=== PATIENT | female | born 1945 | race Caucasian/White ===

== ENCOUNTER 2020-03-14 14:19 | Inpatient (IN) | payer OTHER ==
[2020-03-14 15:20] LABS: BASO % 0.7 % (0-2.0)
[2020-03-14 15:24] LABS: EOS % 1.4 % (0-4.5); HEMOGLOBIN 13.3 GM/dl (10.7-15.3); MCH 34.1 pg (25.7-33.7); MCHC 34.2 g/dl (32.0-36.0); MEAN CELL VOLUME 99.8 fl (80-96); MEAN PLT VOLUME 8.7 fl (7.5-11.1); MONO % 4.8 % (3.8-10.2); NEUT % 78.1 % (42.8-82.8); PLATELET COUNT 231 K/MM3 (134-434); RBC 3.91 M/mm3 (3.60-5.2); RDW 11.9 % (11.6-15.6); WHITE BLOOD COUNT 8.4 K/mm3 (4.0-10.8)
[2020-03-14 15:30] LABS: ACTIVATED PTT 20.8 SECONDS (25.2-36.5)
[2020-03-14 15:32] LABS: ALBUMIN 4.1 g/dl (3.4-5.0); BILIRUBIN,TOTAL 0.9 mg/dl (0.2-1); CALCIUM 9.5 mg/dl (8.5-10); CREATININE 0.8 mg/dl (0.55-1.3); MAGNESIUM 1.9 mg/dL (1.8-2.4); PHOSPHOROUS 3.6 mg/dl (2.5-4.9); POTASSIUM 4.1 mmol/L (3.5-5.1)
[2020-03-14 15:35] LABS: INR 1.02 (0.82-1.09); PROTHROMBIN TIME (PATIENT) 11.4 SEC (10.2-13.0)
--- NOTE | 2020-03-14 15:42 | PDOC ---
Documentation entered by Clare Sutton SCRIBE, acting as scribe for Ping Miranda MD. Ping Miranda MD: This documentation has been prepared by the scribeHerman Ana, SCRIBE, under my direction and personally reviewed by me in its entirety. I confirm that the documentation accurately reflects all work, treatment, procedures, and medical decision making performed by me. History of Present Illness - General Chief Complaint: Shortness of Breath Stated Complaint: SHORT OF BREATH History Source: Patient Exam Limitations: No Limitations - History of Present Illness Initial Comments: 03/14/20 14:35 Patient is a 75 year old female with a significant past medical history of Raynauds Syndrome, smoking (30 years - quit 32 years ago), panic attacks, UTIs, and a previous thrombosed vein in chest (about 40 years ago), who presents to the ED with SOB and associated chest tightness x1 week. Patient stated that last Wednesday afternoon (03/08/2020) she [place] when she suddenly began to experience severe SOB. Patient reports that ever since then she has been in and out of bed because she cannot exert herself at all without needing to lay down after. Patient also reports mild lightheadedness. Patient denies: syncope, headache, palpitations, pain, swelling, or any other related symptoms. Allergies: NKDA Past History - Medical History Allergies/Adverse Reactions: Allergies Allergy/AdvReac Type Severity Reaction Status Date / Time No Known Allergies Allergy Verified 03/14/20 14:21 Home Medications: Ambulatory Orders Apixaban [Eliquis -] 10 mg PO BID #54 tablet 03/19/20 Colchicine [Colcrys] 0.6 mg PO DAILY #5 tab 03/19/20 COPD: No - Reproductive History Is Patient Now?: No - Psycho-Social/Smoking History Smoking History: Former smoker Have you smoked in the past 12 months: No If you are a former smoker, when did you quit?: 1987 Information on smoking cessation initiated: No - Substance Abuse Hx (Audit-C & DAST Scrn) How often the patient has a drink containing alcohol: 4 0r more times/wk Number of drinks the patient has on a typical day: 1 or 2 How often the patient has six or more drinks on one occasion: Never Score: In Men: 4 or > Positive; In Women: 3 or > Positive: 4 Screen Result (Pos requires Nsg. Audit-10AR): Positive In the last yr the pt used illegal drug/Rx for NonMed reason: No Score: Yes response is considered Positive: 0 Screen Result (Positive result requires Nsg. DAST-10): Negative Review of Systems - Review of Systems Able to Perform ROS?: Yes Comments:: 03/14/20 14:34 GEN: no fever, chills, night sweats, malaise, or unintentional weight change HEENT: no ear pain, congestion, sore throat, vision change, or eye pain CV: + Lightheadedness. No chest pain, palpitations, syncope, or edema RESP: + SOB. No cough, wheezing. GI: no abdominal pain, nausea, vomiting, diarrhea, constipation, or white/black/bloody stool : no dysuria, hematuria, frequency, incontinence, retention, or discharge MSK: no muscle weakness or pain, no joint swelling or pain NEURO: no headache, seizure, vertigo, imbalance, numbness, tingling, focal weakness, or difficulty walking/talking PSYCH: no insomnia, behavior change, SI, HI, or substance use SKIN: no prurtitis, excessive dryness, jaundice, rash, cuts, or unexplained bruises ROS otherwise negative except as noted in HPI *Physical Exam - Vital Signs Last Vital Signs Temp Pulse Resp BP Pulse Ox 98.2 F 108 H 22 H 176/95 H 92 L 03/14/20 14:20 03/14/20 14:20 03/14/20 14:20 03/14/20 14:20 03/14/20 14:20 - Physical Exam 03/14/20 14:34 GENERAL: elderly, nontoxic-appearing, no distress, answers questions appropriately, accompanied by family at bedside who assist in history HEENT: PERRLA, EOMI, moist mucous membranes NECK/BACK: no midline ttp, no spinal stepoff or deformity, no hematoma, full ROM, neck supple CARDIOVASCULAR: regular rate/rhythm, no MGR, strong peripheral pulses, capillary refill <2 seconds, extremities wwp, no edema LUNGS/RESPIRATORY: no respiratory distress, CTAB GI/ABDOMEN: symmetric [id number], normoactive BS, soft, no ttp, no midline pu lsatile masses : no CVA tenderness MSK/EXTREMITIES: no acute-appearing muscle atrophy, no acute deformity, no calf swelling or pain, calf circumference equal bilaterally, no UE swelling, all distal pulses intact and equal DERM/SKIN: warm and dry, no pallor, no jaundice, no rash, no pathologic-appe aring bruising, no skin breakdown, no cuts, no lesions NEUROLOGICAL: GCS 15, CN II-XII grossly intact, 5/5 strength proximally and distally, no facial droop Heart Score/ECG Review #1 03/14/20 15:33 Sinus tachycardia, rate 103, normal axis and intervals, poor R wave progression, non-pathologic SERGEY in V123 ED Treatment Course - LABORATORY CBC & Chemistry Diagram: 03/19/20 06:50 03/19/20 06:50 Medical Decision Making - Critical Care Time Total Critical Care Time (minutes): 45 Critical Care Statement: The care of this patient involved high complexity decision making to prevent further life threatening deterioration of the patient's condition and/or to evaluate & treat vital organ system(s) failure or risk of failure. 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 Initial Vital Signs Temp Pulse Resp BP Pulse Ox 98.2 F 108 H 22 H 176/95 H 92 L 03/14/20 14:20 03/14/20 14:20 03/14/20 14:20 03/14/20 14:20 03/14/20 14:20 I am concerned for PE in this patient especially given her prior h/o thrombosis, her tachycardia, her new hypoxia, and her symptoms. Other possibilities are anemia, ACS, CHF, PTX, PNA or bronchitis, electrolyte/metabolic derangement, UTI, or other cause. Patient will require chest CT PE protocol given her high risk and high probability of PE. CXR: nothing acute Provider Orders Category Date Time Status TYPE AND SCREEN Stat Blood Bank 03/14/20 14:[address] WITH CONTRAST [CT] Stat CT Scan 03/14/20 14:38 Ordered ELECTROCARDIOGRAM [CARD] Stat Cardiology 03/14/20 14:36 Ordered Cardiac Monitoring Continuous Care 03/14/20 14:36 Ordered EKG needed NOW Care 03/14/20 14:37 Ordered ACTIVATED PTT SERIES Lab 03/16/20 06:00 Ordered ACTIVATED PTT SERIES Lab 03/17/20 06:00 Ordered ACTIVATED PTT SERIES Lab 03/18/20 06:00 Ordered ACTIVATED PTT SERIES Lab 03/19/20 06:00 Ordered ACTIVATED PTT SERIES Lab 03/20/20 06:00 Ordered ACTIVATED PTT Stat Lab 03/14/20 14:37 Uncollected CARDIAC PROFILE (ONLY [facility]) Stat Lab 03/14/20 14:36 Uncollected CBC WITH DIFFERENTIAL Stat Lab 03/14/20 14:36 Uncollected COMP METABOLIC PANEL Stat Lab 03/14/20 14:36 Uncollected COMPLETE BLOOD COUNT SERIES Lab 03/16/20 06:00 Ordered COMPLETE BLOOD COUNT SERIES Lab 03/17/20 06:00 Ordered COMPLETE BLOOD COUNT SERIES Lab 03/18/20 06:00 Ordered COMPLETE BLOOD COUNT SERIES Lab 03/19/20 06:00 Ordered COMPLETE BLOOD COUNT SERIES Lab 03/20/20 06:00 Ordered MAGNESIUM Stat Lab 03/14/20 14:36 Uncollected PHOSPHOROUS Stat Lab 03/14/20 14:36 Uncollected PT/INR (PROTHROMBIN TIME) Stat Lab 03/14/20 14:37 Uncollected STOOL FOR OCCULT BLOOD SERIES Lab 03/16/20 06:00 Uncollected STOOL FOR OCCULT BLOOD SERIES Lab 03/17/20 06:00 Uncollected STOOL FOR OCCULT BLOOD SERIES Lab 03/18/20 06:00 Uncollected STOOL FOR OCCULT BLOOD SERIES Lab 03/19/20 06:00 Uncollected STOOL FOR OCCULT BLOOD SERIES Lab 03/20/20 06:00 Uncollected TSH [THYROID STIMULATING HORMONE] Stat Lab 03/14/20 14:38 Uncollected UA ([facility] ONLY) Stat Lab 03/14/20 15:33 Uncollected Heparin - Medication 03/14/20 16:18 Ordered 1,000 unit IVPUSH PRN PRN Heparin - Medication 03/14/20 16:18 Ordered 5,000 unit IVPUSH PRN PRN Heparin Infusion In NS @ 800 units/HR (Pt < 67kg) Medication 03/14/20 16:30 Ordered Heparin - 25,000 unit Sodium Chloride [Normal Saline -] 495 ml IV TITR Urine Culture [URINE CULTURE] Stat Micro 03/14/20 15:33 Uncollected CHEST X-RAY PORTABLE* [RAD] Stat Radiology 03/14/20 14:36 Ordered Medications Generic Name Dose Route Start Last Admin Trade Name Lindy PRN Reason Stop Dose Admin Heparin Sodium (Porcine) 1,000 unit 03/14/20 16:18 Heparin - IVPUSH PRN PRN Heparin Heparin Sodium (Porcine) 5,000 unit 03/14/20 16:18 Heparin - IVPUSH PRN PRN Heparin Heparin Sodium (Porcine) 25, 500 mls @ 16 mls/hr 03/14/20 16:30 000 unit/ Sodium Chloride IV TITR LIBBY Protocol 800 UNIT/HR Lab Results WBC 8.4 K/mm3 (4.0-10.8) 03/14/20 14:40 RBC 3.91 M/mm3 (3.60-5.2) 03/14/20 14:40 Hgb 13.3 GM/dl (10.7-15.3) 03/14/20 14:40 Hct 39.0 % (32.4-45.2) 03/14/20 14:40 MCV 99.8 fl (80-96) H 03/14/20 14:40 MCH 34.1 pg (25.7-33.7) H 03/14/20 14:40 MCHC 34.2 g/dl (32.0-36.0) 03/14/20 14:40 RDW 11.9 % (11.6-15.6) 03/14/20 14:40 Plt Count 231 K/MM3 (134-434) 03/14/20 14:40 MPV 8.7 fl (7.5-11.1) 03/14/20 14:40 Absolute Neuts (auto) 6.5 K/mm3 03/14/20 14:40 Neutrophils % 78.1 % (42.8-82.8) 03/14/20 14:40 Lymphocytes % 15.0 % (8-40) 03/14/20 14:40 Monocytes % 4.8 % (3.8-10.2) 03/14/20 14:40 Eosinophils % 1.4 % (0-4.5) 03/14/20 14:40 Basophils % 0.7 % (0-2.0) 03/14/20 14:40 PT with INR 11.4 SEC (10.2-13.0) 03/14/20 14:40 INR 1.02 (0.82-1.09) 03/14/20 14:40 PTT (Actin FS) 20.8 SECONDS (25.2-36.5) L 03/14/20 14:40 Sodium 139 mmol/L (136-145) 03/14/20 15:00 Potassium 4.1 mmol/L (3.5-5.1) 03/14/20 15:00 Chloride 106 mmol/L (98-107) 03/14/20 15:00 Carbon Dioxide 22 mmol/L (21-32) 03/14/20 15:00 Anion Gap 11 MMOL/L (8-16) 03/14/20 15:00 BUN 27.0 mg/dl (7-18) H 03/14/20 15:00 Creatinine 0.8 mg/dl (0.55-1.3) 03/14/20 15:00 Est GFR (CKD-EPI)AfAm 82.42 03/14/20 15:00 Est GFR (CKD-EPI)NonAf 71.11 03/14/20 15:00 Random Glucose 89 mg/dl (74-106) 03/14/20 15:00 Calcium 9.5 mg/dl (8.5-10) 03/14/20 15:00 Phosphorus 3.6 mg/dl (2.5-4.9) 03/14/20 15:00 Magnesium 1.9 mg/dL (1.8-2.4) 03/14/20 15:00 Total Bilirubin 0.9 mg/dl (0.2-1) 03/14/20 15:00 AST 249 U/L (15-37) H 03/14/20 15:00 ALT 242 U/L (13-61) H 03/14/20 15:00 Alkaline Phosphatase 119 U/L (45-117) H 03/14/20 15:00 Creatine Kinase 85 U/L (26-192) 03/14/20 15:00 Troponin I 0.06 ng/ml (0.00-0.05) H 03/14/20 15:00 Total Protein 7.0 g/dl (6.4-8.2) 03/14/20 15:00 Albumin 4.1 g/dl (3.4-5.0) 03/14/20 15:00 03/14/20 16:16 Bilateral pulmonary emboli seen on chest CT - patient to be admitted, PCP Dr. Mcneil's patients go to [facility]. Heparin 5000U bolus and then ggt ordered. CT/CHEST CT WITH CONTRAST Patient Name: JAXSON PATEL Accession Number: [id number] :[id number] Gender: Female Procedure: CHEST CT WITH CONTRAST CLINICAL INFORMATION: 75 years Female shortness of breath. Rule out pulmonary embolism. TECHNIQUE: Axial images of the chest were acquired from the clavicles through the diaphragms with the administration of 95 cc Omnipaque intravenous contrast. Coronal and sagittal reformatted images were performed. COMPARISON: None. FINDINGS: Devices: None. Lungs and Airways: No focal consolidation. The central airways are patent. No suspicious pulmonary nodules are identified. Pleura and Pleural Space: There is no pleural effusion, pleural mass, or pneumothorax. Neck base: No focal lesion. The thyroid gland appears normal. Lymph nodes and Mediastinum: There is no significant intrathoracic lymphadenopathy. No pathologically enlarged axillary or other adenopathy is detected. Cardiovascular: Large bilateral pulmonary emboli are demonstrated within the primary left and right pulmonary arteries. Associated moderate right heart strain is demonstrated. Cardiomegaly. Trace pericardial effusion. The aorta is normal in caliber. Upper abdomen: The imaged portions of the solid and visceral abdominal organs are unremarkable. Musculoskeletal and Chest Wall: Multilevel degenerative disc disease. There is no fracture or other acute osseous pathology. IMPRESSION: Large bilateral pulmonary emboli demonstrated within the primary left and right pulmonary arteries with associated moderate right heart strain. Findings discussed with Dr. Orr on March 14, 2020 at 4:50 PM by phone. Discharge - Discharge Information Problems reviewed: Yes Clinical Impression/Diagnosis: Bilateral pulmonary embolism, Elevated LFTs, Elevated troponin Condition: Guarded - Admission Yes - Follow up/Referral - Patient Discharge Instructions - Post Discharge Activity
[2020-03-14] MEDS ORDERED: HEPARIN NA (PORCINE) 5,000 UNITS/ML 1ML VIAL IVPUSH PRN ×2 (16:18)
[2020-03-14] MEDS ORDERED: HEPARIN INFUSION - 25,000 UNITS/500 ML INFUS.BAG IVPB ONE (16:35)
[2020-03-14] MEDS ORDERED: HEPARIN NA (PORCINE) 5,000 UNITS/ML 1ML VIAL ONE (16:35)
[2020-03-14] MEDS: HEPARIN - 25,000 UNIT in SODIUM CHLORIDE 495 ML IV SCH (16:55)
[2020-03-14 18:37] VITALS: BMI 26.2
--- NOTE | 2020-03-14 20:51 | HP ---
Admitting History and Physical - Primary Care Physician PCP: Brunilda Mcneil - Admission Chief Complaint: SOB History of Present Illness: This is a 75 y/o female with a significant past medical history of Raynaud's Syndrome, Former Smoker (30 years - quit 32 years ago), Panic Attacks, UTIs, a previous thrombosed vein in chest (about 40 years ago). Who presents to the ED with SOB and associated chest tightness x1 week. Patient stated that last Wednesday afternoon (03/08/2020) [place] when she suddenly began to experience severe SOB. Patient reports that ever since then she has been in and out of bed because she cannot exert herself at all without needing to lay down after. Patient also reports mild lightheadedness. Patient denies: syncope, headache, palpitations, pain, swelling, or any other related symptoms. History Source: Patient Limitations to Obtaining History: No Limitations - Past Medical History Renal/: Yes: UTI ...: No Psych: Yes: Panic Rheumatology: Yes: Other (Raynaud's Syndrome) - Past Surgical History Additional Past Surgical History: Hammertoe correction - Advance Directives Advance Directives: Yes: Living Will, Health Care Proxy, Organ Donor - Smoking History Smoking history: Former smoker Have you smoked in the past 12 months: No If you are a former smoker, when did you quit?: 1987 - Alcohol/Substance Use Hx Alcohol Use: Yes (1-2 drinks daily) History of Substance Use: reports: None - Social History Usual Living Arrangement: Yes: With Spouse Do you think of yourself as: Straight/Heterosexual ADL: Independent Occupation: Retired- Project Superintendent History of Recent Travel: No Home Medications - Allergies Allergies/Adverse Reactions: Allergies Allergy/AdvReac Type Severity Reaction Status Date / Time No Known Allergies Allergy Verified 03/14/20 14:21 - Home Medications Home Medications: Ambulatory Orders NK [No Known Home Medication] 03/14/20 Family Medical History Family History: As Documented Family Hx Congestive Heart Failure: Father, Brother (-71) Family Hx Coronary Artery Disease: Mother ([place]) Family Hx Respiratory Disorders: Brother (COPD- 71) Review of Systems - Review of Systems Constitutional: reports: No Symptoms Eyes: reports: No Symptoms HENT: reports: No Symptoms Neck: reports: No Symptoms Cardiovascular: reports: Chest Pain, Shortness of Breath Respiratory: reports: Exercise Intolerance, Orthopnea, SOB, SOB on Exertion Gastrointestinal: reports: No Symptoms Genitourinary: reports: No Symptoms Breasts: reports: No Symptoms Reported Musculoskeletal: reports: No Symptoms Integumentary: reports: No Symptoms Neurological: reports: Dizziness Endocrine: reports: No Symptoms Hematology/Lymphatic: reports: No Symptoms Psychiatric: reports: No Symptoms Physical Examination Vital Signs: Vital Signs Temperature 98.1 F 03/14/20 18:18 Pulse Rate 109 H 03/14/20 18:18 Respiratory Rate 18 03/14/20 20:38 Blood Pressure 177/94 H 03/14/20 18:18 O2 Sat by Pulse Oximetry (%) 93 L 03/14/20 20:38 Constitutional: Yes: Well Nourished, Anxious Eyes: Yes: WNL, Conjunctiva Clear, EOM Intact, PERRL HENT: Yes: WNL, Atraumatic, Normocephalic Neck: Yes: WNL, Supple, Trachea Midline Cardiovascular: Yes: Regular Rate and Rhythm, S1, S2 Respiratory: Yes: Diminished, On Nasal O2, SOB on Exertion. No: Rhonchi, Wheezes Gastrointestinal: Yes: WNL, Normal Bowel Sounds, Soft ...Rectal Exam: Yes: Deferred Renal/: Yes: WNL Breast(s): Yes: WNL Musculoskeletal: Yes: WNL, Other (neg homans) Extremities: Yes: WNL Edema: No Peripheral Pulses WNL: Yes Neurological: Yes: WNL, Alert, Oriented, Cran Nerves II-XII Intact ...Motor Strength: WNL Psychiatric: Yes: WNL, Alert, Oriented Labs: CBC, BMP 03/14/20 14:40 03/14/20 15:00 Laboratory Results - last 24 hr 03/14/20 03/14/20 03/14/20 14:40 14:40 14:40 WBC 8.4 RBC 3.91 Hgb 13.3 Hct 39.0 MCV 99.8 H MCH 34.1 H MCHC 34.2 RDW 11.9 Plt Count 231 MPV 8.7 Absolute Neuts (auto) 6.5 Neutrophils % 78.1 Lymphocytes % 15.0 Monocytes % 4.8 Eosinophils % 1.4 Basophils % 0.7 PT with INR 11.4 INR 1.02 PTT (Actin FS) 20.8 L Sodium Potassium Chloride Carbon Dioxide Anion Gap BUN Creatinine Est GFR (CKD-EPI)AfAm Est GFR (CKD-EPI)NonAf Random Glucose Calcium Phosphorus Magnesium Total Bilirubin AST ALT Alkaline Phosphatase Creatine Kinase Troponin I Total Protein Albumin TSH Urine Color Urine Appearance Urine pH Urine Protein Urine Glucose (UA) Urine Ketones Urine Blood Urine Nitrite Urine Bilirubin Urine Urobilinogen Ur Leukocyte Esterase Urine RBC Urine WBC Urine Bacteria Blood Type B POSITIVE Antibody Screen Negative 03/14/20 03/14/20 03/14/20 15:00 15:00 15:45 WBC RBC Hgb Hct MCV MCH MCHC RDW Plt Count MPV Absolute Neuts (auto) Neutrophils % Lymphocytes % Monocytes % Eosinophils % Basophils % PT with INR INR PTT (Actin FS) Sodium 139 Potassium 4.1 Chloride 106 Carbon Dioxide 22 Anion Gap 11 BUN 27.0 H Creatinine 0.8 Est GFR (CKD-EPI)AfAm 82.42 Est GFR (CKD-EPI)NonAf 71.11 Random Glucose 89 Calcium 9.5 Phosphorus 3.6 Magnesium 1.9 Total Bilirubin 0.9 AST 249 H ALT 242 H Alkaline Phosphatase 119 H Creatine Kinase 85 Troponin I 0.06 H Total Protein 7.0 Albumin 4.1 TSH 1.37 Urine Color Yellow Urine Appearance Clear Urine pH 6.0 Urine Protein Negative Urine Glucose (UA) Negative Urine Ketones Negative Urine Blood Trace-intact Urine Nitrite Negative Urine Bilirubin Negative Urine Urobilinogen 0.2 Ur Leukocyte Esterase Trace H Urine RBC 0-2 Urine WBC 2-3 Urine Bacteria Few Blood Type Antibody Screen Intake & Output 03/11/20 03/12/20 03/13/20 03/14/20 23:59 23:59 23:59 23:59 Weight 67.152 kg Imaging - Results Chest X-ray: Report Reviewed, Image Reviewed Cat Scan: Report Reviewed, Image Reviewed EKG: Image Reviewed Problem List - Problems (1) Bilateral pulmonary embolism Assessment/Plan: Wells Score 4.5, moderate risk CTA- large bilateral pulmonary emboli within the left primary and right pulmonary arteries with associated moderate right heart strain Heparin Protocol initiated in ED PTT series Continue cardiac monitoring Appreciate Pulmonology consult Duplex of lower extremity - r/o DVT Monitor CBC, CMP O2 Code(s): I26.99 - OTHER PULMONARY EMBOLISM WITHOUT ACUTE COR PULMONALE (2) SOB (shortness of breath) Assessment/Plan: see above Code(s): R06.02 - SHORTNESS OF BREATH (3) Elevated troponin Assessment/Plan: Likely secondary to PE vs ACS Continue cardiac monitoring Will trend Serial Enzymes Appreciate Cardiology consult EKG reviewed O2 Monitor CBC, CMP Code(s): R79.89 - OTHER SPECIFIED ABNORMAL FINDINGS OF BLOOD CHEMISTRY (4) Elevated LFTs Assessment/Plan: r/o viral hepatitis, alcoholic liver disease vs malignancy Gallbladder US-pending Hepatitis Panel-pending Consider GI consult Monitor CBC, CMP Avoid Hepatotoxic drugs Monitor vitals Code(s): R79.89 - OTHER SPECIFIED ABNORMAL FINDINGS OF BLOOD CHEMISTRY (5) Raynaud's syndrome Assessment/Plan: stable Will continue to monitor and treat with interventions. accordingly f/u with Rheumatology outpatient as indicated Code(s): I73.00 - RAYNAUD'S SYNDROME WITHOUT GANGRENE (6) Encounter for screening laboratory testing for COVID-19 virus Assessment/Plan: Low Risk COVID PCR-pending Isolation Precautions Code(s): Z11.59 - ENCOUNTER FOR SCREENING FOR OTHER VIRAL DISEASES Assessment/Plan This is a 75 y/o female with a significant past medical history of Raynaud's Syndrome, Former Smoker (30 years - quit 32 years ago), Panic Attacks, UTIs, a previous thrombosed vein in chest (about 40 years ago). Admitted to Telemetry for Bilateral Pulmonary Embolisms, Acute Respiratory Failure with Hypoxia, Troponinemia for further evaluation of their emergent condition. Plan: See Problem List FEN PO fluids as tolerated Replete lytes prn Regular Diet DVT ppx OOB SCDs (when duplex LE completed- r/o DVT) Continue Heparin Drip Dispo: Requires Inpatient Care Visit type - Medication Review Med list reviewed for High Risk Meds patients 65 and older: No (No med list av ailable) - Emergency Visit Emergency Visit: Yes ED Registration Date: 03/14/20 Care time: The patient presented to the Emergency Department on the above date and was hospitalized for further evaluation of their emergent condition. - New Patient This patient is new to me today: Yes Date on this admission: 03/14/20 - Critical Care Critical Care patient: No
--- NOTE | 2020-03-15 07:58 | PN ---
Progress Note (short form) - Note Progress Note: PULMONARY CONSULTATION DICTATED 03/15/20 IMP ACUTE SUB-MASSIVE PULMONARY EMBOLISM UNPROVOKED RAYNAUDS H/O PANIC ATTACKS PLAN SUPPLEMENTAL O2 AC ECHO BNP TREND TROPONIN COVID PCR PENDING AGE APPROPRIATE CANCER SCREENING W/U FOR HYPERCOAGULABLE STATE OUTPATIENT DR HAYWARD Problem List - Problems (1) Bilateral pulmonary embolism Code(s): I26.99 - OTHER PULMONARY EMBOLISM WITHOUT ACUTE COR PULMONALE (2) Elevated LFTs Code(s): R79.89 - OTHER SPECIFIED ABNORMAL FINDINGS OF BLOOD CHEMISTRY (3) Elevated troponin Code(s): R79.89 - OTHER SPECIFIED ABNORMAL FINDINGS OF BLOOD CHEMISTRY (4) Raynaud's syndrome Code(s): I73.00 - RAYNAUD'S SYNDROME WITHOUT GANGRENE (5) SOB (shortness of breath) Code(s): R06.02 - SHORTNESS OF BREATH
--- NOTE | 2020-03-15 08:31 | CON.CARD ---
Consult Consult Specialty:: Cardiology Referred by:: Dr. Anderson Reason for Consultation:: Pulmonary emboli - History of Present Illness Chief Complaint: SOB History of Present Illness: 75 y/o female with a significant past medical history of Raynaud's Syndrome, Former Smoker (30 years - quit 32 years ago), Panic Attacks, UTIs, a previous thrombosed vein in chest (about 40 years ago). Who presents to the ED with SOB and associated chest tightness x1 week.CTA showed bilateral pulmonary emboli with evidence of possible right heart strain. Her TNI is elevated. She appears comfortable. Denies CP. Hemodynamically, she has been stable with no hypotension. 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: No: Alzheimer's, CVA, Dementia, Migraine, Multiple Sclerosis, Peripheral Neuropathy, Parkinson's, Seizure, Syncope, TIA, Vertigo, Other Cardio/Vascular: No: AFIB, Aneurysm, Aortic Insufficiency, Aortic Stenosis, CAD, CHF, Deep Vein Thrombosis, HTN, Hyperlipdemia, CO, Mitral Insufficiency, Mitral Stenosis, Murmur, Pulmonary Hypertension, Other Pulmonary: No: Asthma, Bronchitis, Cancer, COPD, O2 Dependent, Pneumonia, Previously Intubated, Pulmonary Embolus, Pulmonary Fibrosis, Sleep Apnea, Other Gastrointestinal: No: Ascites, Cancer, Constipation, Crohn's Disease, Divertic ulitis, Diverticulosis, Esophageal Varices, Gastritis, GERD, GI Bleed, Hemorrhoids, Hiatal Hernia, Inflamatory Bowel Disease, Irritable Bowel Disease, Pancreatitis, Peptic Ulcer Disease, Ulcerative Colitis, Other Hepatobiliary: No: Cirrhosis, Cholelithiasis, Cholecystitis, C holedocholithiasis, Hepatitis A, Hepatitis B, Hepatitis C, Other Renal/: Yes: UTI. No: Renal Failure, Renal Inusuff, BPH, Cancer, Hematuria, Hemodialysis, Neurogenic Bladder, Renal Calculi, Other ...: No Infectious Disease: No: AIDS, C-Diff, Herpes Zoster, HIV, MRSA, STD's, Tuberculosis, VREF, Other Psych: Yes: Panic Rheumatology: Yes: Other (Raynaud's Syndrome) Endocrine: No: [place]'s Disease, Hany's Disease, Diabetes Insipidus, D iabetes Mellitus, Hyperparathyroidism, Hyperthyroidism, Hypothyroidism, Osteopenia, SIADH, Other Dermatology: No: Basal Cell, Cellulitis, Eczema, Melanoma, Psoriasis, Squamous Cell, Other - Alcohol/Substance Use Hx Alcohol Use: No History of Substance Use: reports: None - Smoking History Smoking history: Former smoker Have you smoked in the past 12 months: No If you are a former smoker, when did you quit?: 1987 - Social History Usual Living Arrangement: With Spouse ADL: Independent History of Recent Travel: No Home Medications - Allergies Allergies/Adverse Reactions: Allergies Allergy/AdvReac Type Severity Reaction Status Date / Time No Known Allergies Allergy Verified 03/14/20 14:21 - Home Medications Home Medications: Ambulatory Orders NK [No Known Home Medication] 03/14/20 Family Medical History Family History: Unremarkable Review of Systems - Review of Systems Constitutional: reports: No Symptoms Eyes: reports: No Symptoms HENT: reports: No Symptoms Neck: reports: No Symptoms Respiratory: reports: SOB, SOB on Exertion Gastrointestinal: denies: No Symptoms, Abdominal Pain, Bloating, Constipation, Diarrhea, Dysphagia, Indigestion, Melena, Nausea, Rectal Bleeding, Vomiting, Vomiting Blood, Other Genitourinary: denies: No Symptoms, Burning, Discharge, Dysuria, Flank Pain, Frequency, Hematuria, Incontinence, Lesions, Menses, Pain, Testicular Mass, Testicular Pain, Testicular Swelling, Urgency, Vaginal Bleeding, Other Breasts: denies: No Symptoms Reported, See HPI, Breast Implants, Discharge from Nipple, Lumps, Pain, Skin Changes, Other Musculoskeletal: denies: No Symptoms, Back Pain, Crepitus, Decreased ROM, Extremity Pain, Joint Pain, Joint Swelling, Muscle Pain, Muscle Cramps, Muscle Weakness, Other Integumentary: denies: No Symptoms, Blister, Bruising, Change in Color, Eczema, Erythema, Incision, Lesions, Lump, Pallor, Pruritis, Rash, Wound, Other Neurological: denies: No Symptoms, Change in LOC, Change in Speech, Confusion, Dizziness, Headache, Incoordination, Numbness, Parasthesia, Pre-Existing Deficit, Seizure, Syncope, Tremors, Unsteady Gait, Weakness, Other Endocrine: denies: No Symptoms, Excessive Sweating, Flushing, Increased Hunger, Increased Thirst, Intolerance to Cold, Intolerance to Heat, Unexplained Weight Gain, Unexplained Weight Loss, Other Hematology/Lymphatic: denies: No Symptoms, Easily Bruised, Excessive Bleeding, Swollen Glands, Other Psychiatric: reports: Panic Vital Signs: Vital Signs Temperature 97.8 F 03/15/20 08:30 Pulse Rate 72 03/15/20 08:30 Respiratory Rate 18 03/15/20 08:30 Blood Pressure 142/87 03/15/20 08:30 O2 Sat by Pulse Oximetry (%) 100 03/15/20 08:30 Constitutional: Yes: No Distress Eyes: Yes: Conjunctiva Clear HENT: Yes: Atraumatic Neck: Yes: Trachea Midline Respiratory: Yes: Regular, CTA Bilaterally Gastrointestinal: Yes: Soft (nt) Cardiovascular: Yes: Regular Rate and Rhythm JVD: No Carotid Bruit: No PMI: Non-Displaced Heart Sounds: Yes: S1, S2 (rrr) Edema: No (Negative Monica's b/l) Peripheral Pulses WNL: Yes Integumentary: Yes: WNL Neurological: Yes: Alert, Oriented ...Motor Strength: WNL - Other Data Labs, Other Data: CBC, BMP 03/14/20 14:40 03/14/20 15:00 INR, PTT INR 1.02 (0.82-1.09) 03/14/20 14:40 Troponin, BNP 03/14/20 03/14/20 15:00 21:00 Troponin I 0.06 H 0.63 H* Troponin, BNP 03/14/20 03/14/20 15:00 21:00 Troponin I 0.06 H 0.63 H* ST 103, LAE, poor R wave progression, NSST changes Echo: Pending Imaging - Results Cat Scan: Report Reviewed (large b/l pulmonary emboli), Image Reviewed Assessment/Plan IMP: Large bilateral pulmomary emboli with evidence of right heart strain on CT and elevated TnI Hemodynamically stable REC: 1. Pulmonary emboli: -Continue anticoagulation. Has been started on UFH gtts while she is evaluated for possible catheter directed thrombolysis -Have discussed with Pulmonary and Critical Care Team, pt to be transferred to [facility] telemetry unit or ICU if bed available. -Echo to evaluate right heart -Recommend consulting Interventonal Radiology -age appropriate cancer screening -Heme evaluation -Check BNP -f/u LE venous duplex -further plans for AC as per critical care team. -Supp O2
--- NOTE | 2020-03-15 09:28 | PN ---
Progress Note, Physician Chief Complaint: VILLANUEVA History of Present Illness: 75 year old F admitted overnight for c/o VILLANUEVA, she was found to have large bilateral PE within the primary left and right pulmonary arteries with a ssociated moderate right heart strain. Arrangements made for transfer [place] [facility] [place] for [place] management and possible catheter directed thrombolysis. Heparin drip currently therapeutic last PTT 100.0 and trop downtrending. - Current Medication List Current Medications: Active Medications Heparin Sodium (Porcine) (Heparin -) 1,000 unit IVPUSH PRN PRN PRN Reason: Heparin Heparin Sodium (Porcine) (Heparin -) 5,000 unit IVPUSH PRN PRN PRN Reason: Heparin Last Admin: 03/14/20 16:50 Dose: 5,000 unit Documented by: Heparin Sodium (Porcine) 25, (000 unit/ Sodium Chloride) 500 mls @ 16 mls/hr IV TITR LIBBY; Protocol Last Admin: 03/14/20 16:55 Dose: 800 unit/hr, 16 mls/hr Documented by: - Objective Vital Signs: Vital Signs Temperature 97.8 F 03/15/20 08:30 Pulse Rate 72 03/15/20 08:30 Respiratory Rate 18 03/15/20 08:30 Blood Pressure 142/87 03/15/20 08:30 O2 Sat by Pulse Oximetry (%) 100 03/15/20 08:31 Constitutional: Yes: Well Nourished, No Distress, Calm Eyes: Yes: Conjunctiva Clear HENT: Yes: Atraumatic, Normocephalic Neck: Yes: Supple, Trachea Midline Cardiovascular: Yes: Regular Rate and Rhythm Respiratory: Yes: CTA Bilaterally Gastrointestinal: Yes: Soft, Abdomen, Obese, Hypoactive Bowel Sounds ...Rectal Exam: Yes: Deferred Musculoskeletal: Yes: WNL Extremities: Yes: WNL Neurological: Yes: Alert, Oriented ...Motor Strength: WNL Psychiatric: Yes: Alert, Oriented Labs: CBC, BMP 03/14/20 14:40 03/14/20 15:00 INR, PTT INR 1.02 (0.82-1.09) 03/14/20 14:40 - ....Imaging Chest X-ray: Report Reviewed (CXR 03/14/2020 Impression: No acute chest pathology. No comparison studies. Reported By: Sathish Jin MD 03/14/20 1704) Cat Scan: Report Reviewed (CT chest with contrast 03/14/2020 IMPRESSION: Large bilateral pulmonary emboli demonstrated within the primary left and right pulmonary arteries with associated moderate right heart strain. Findings discussed with Dr. Orr on March 14, 2020 at 4:50 PM by phone. Reported By: Navid Stokes MD 03/14/20 1700) Ultrasound: Report Reviewed ([facility] US - final report pending) Problem List - Problems (1) Prophylactic measure Assessment/Plan: Bowel regimen OOB to chair Code(s): Z29.9 - ENCOUNTER FOR PROPHYLACTIC MEASURES, UNSPECIFIED (2) Bilateral pulmonary embolism Assessment/Plan: Supplemental O2 Echo and LE doppler ordered continue with therapeutic heparin infusion monitor on tele cardiology following consult placed for IR Repeat labs and EKG upon arrival to [facility] Code(s): I26.99 - OTHER PULMONARY EMBOLISM WITHOUT ACUTE COR PULMONALE (3) Encounter for screening laboratory testing for COVID-19 virus Assessment/Plan: f/u COVID - 19 result [address] remains in [address] Code(s): Z11.59 - ENCOUNTER FOR SCREENING FOR OTHER VIRAL DISEASES Impression/Plan Impression/Plan: Code status: Full DISPO: transfer to [facility] Visit type - Emergency Visit Emergency Visit: Yes ED Registration Date: 03/14/20 Care time: The patient presented to the Emergency Department on the above date and was hospitalized for further evaluation of their emergent condition. - New Patient This patient is new to me today: Yes Date on this admission: 03/15/20 - Critical Care Critical Care patient: No - Discharge Referral Referred to [facility] Med P.C[facility] No - Medication Review Med list reviewed for High Risk Meds patients 65 and older: Yes
[2020-03-15] MEDS ORDERED: SENNOSIDES 8.6MG TABLET (FP) PO PRN (09:31)
[2020-03-15] MEDS ORDERED: DOCUSATE SODIUM 100 MG CAPSULE (FP) PO PRN (09:31)
--- NOTE | 2020-03-15 10:52 | PN ---
Progress Note (short form) - Note Progress Note: This is a 75 y/o female with a significant past medical history of Raynaud's Syndrome, Former Smoker,, a previous thrombosed vein in chest (about 40 years ago). Who presents to the ED with SOB times one week (mainly VILLANUEVA) found to have B/L pulmonary emboli in R and L PA with associated right heart strain, patient was started on heparin gtt and transferred to [facility] vitals: afebrile BP 140/80 2L nc 100% gen: NAD; Aoxx3 CV: RRR s1 s2 no mrg Lungts: CTA Bl no rales, rhonhic or wheezing Abd: soft/ NT ND +BS in all 4 quadrnats Extremities: no calf tendeness; warm;well perfused no clubbing/cyanosis or edema plan: B.L PE with moderate right heart strain started on heparin gtt -echo ordered; f/u final read -cardio consult -heme consult -pulm consult -discuss when to switch to oral AC -f/u LE duplex -hypercoagulable workup to be initiated -IR aware -monitor hemodynamics #Transaminitis hepatitis panel pending Abdomen US reveals fatty liver with a few hepatic cysts measuring 1.6 cm Problem List - Problems (1) Bilateral pulmonary embolism Code(s): I26.99 - OTHER PULMONARY EMBOLISM WITHOUT ACUTE COR PULMONALE
--- NOTE | 2020-03-15 10:55 | EKG ---
Test Reason : Blood Pressure : / mmHG Vent. Rate : 103 BPM Atrial Rate : 103 BPM P-R Int : 154 ms QRS Dur : 068 ms QT Int : 336 ms P-R-T Axes : 069 055 073 degrees QTc Int : 440 ms SINUS TACHYCARDIA POSSIBLE LEFT ATRIAL ENLARGEMENT POOR R WAVE PROGRESSION NONSPECIFIC ST ABNORMALITY ABNORMAL ECG Confirmed by SELMA BARROW MD ([id number]) on 03/15/2020 10:55:40 AM Referred By: DR ZHANG Confirmed By:SELMA BARROW MD
--- NOTE | 2020-03-15 11:40 | CONSULT ---
Consultation: Heme-onc resident note REQUESTING PROVIDER: Dr. Germain CONSULT REQUEST: We have been asked to medically evaluate this patient for unprovoked PE. HISTORY OF PRESENT ILLNESS: Patient is a 75 year old female with past medical history of Raynaud's syndrome, anxiety, previous hx of PE (about 35 years ago), presented to the ED due to persistent dyspnea on exertion and chest tightness for 1 week. Patient reported her SOB and chest tightness started suddenly a week ago, aggravated by exertion. She tried to follow up with a PCP outpatient but was unable to find a doctor that could schedule her soon. She had a COVID Ag test done 4 days ago and was reported to be negative. Because of persistent dyspnea on exertion patient came to the ED yesterday. At the ED, chest CTA revealed large bilateral PE within the left pulmonary and right pulmonary arteries with associated moderated right heart strain. Troponin was elevated and peaked. Heparin gtt was started. Of note, patient was diagnosed with PE about 35 years ago, where she was discharged on coumadin, which she took for 6 months. Patient has not had any issues since then until now. Patient denies any recent illness or recent travel. Today, patient reports feeling better, although still with dyspnea on exertion, denies fevers, chills, headache, dizziness, chest pain, SOB at rest, abdominal pain, diarrhea, urinary symptoms. No recent surgery or trauma. She has an active lifestyle. Was previously on hormone replacement therapy but stopped taking it after a month as she could not tolerate (last intake 2 years ago). Had been following up with her PCP for cancer screening, with last colonoscopy, chest CT and mammogram 4 years ago reported to be normal, with no more follow ups. PMHx: Raynaud's syndrome, anxiety, previous hx of PE PSHx: Hammertoe correction Allergies: NKDA SHx: previous smoker, occasional etoh drink, denies illicit drug use FHx: no history of blood disorders or cancer in the family REVIEW OF SYSTEMS: CONSTITUTIONAL: Absent: fever, chills, diaphoresis, generalized weakness, malaise, loss of appetite, weight change HEENT: Absent: rhinorrhea, nasal congestion, throat pain, throat swelling, difficulty swallowing, mouth swelling, ear pain, eye pain, visual changes CARDIOVASCULAR: Absent: chest pain, syncope, palpitations, irregular heart rate, lightheadedness, peripheral edema RESPIRATORY: dyspnea with exertion Absent: cough, shortness of breath, orthopnea, wheezing, stridor, hemoptysis GASTROINTESTINAL: Absent: abdominal pain, abdominal distension, nausea, vomiting, diarrhea, constipation, melena, hematochezia GENITOURINARY: Absent: dysuria, frequency, urgency, hesitancy, hematuria, flank pain, genital pain MUSCULOSKELETAL: Absent: myalgia, arthralgia, joint swelling, back pain, neck pain SKIN: Absent: rash, itching, pallor HEMATOLOGIC/IMMUNOLOGIC: Absent: easy bleeding, easy bruising, lymphadenopathy, frequent infections ENDOCRINE: Absent: unexplained weight gain, unexplained weight loss, heat intolerance, cold intolerance NEUROLOGIC: Absent: headache, focal weakness or paresthesias, dizziness, unsteady gait, seizure, mental status changes, bladder or bowel incontinence PSYCHIATRIC: Absent: anxiety, depression, suicidal or homicidal ideation, hallucinations. PHYSICAL EXAMINATION Vital Signs - 24 hr 03/14/20 03/14/20 03/14/20 14:20 17:00 17:06 Temperature 98.2 F Pulse Rate 108 H 101 H Pulse Rate [ 102 H Apical] Respiratory 22 H 22 H Rate Blood Pressure 176/95 H Blood Pressure 193/95 H [Right Arm] O2 Sat by Pulse 92 L 95 98 Oximetry (%) 03/14/20 03/14/20 03/14/20 17:07 18:18 20:38 Temperature 98.1 F Pulse Rate 109 H Pulse Rate [ Apical] Respiratory 18 18 Rate Blood Pressure 177/94 H Blood Pressure [Right Arm] O2 Sat by Pulse 92 L 93 L 93 L Oximetry (%) 03/14/20 03/15/20 03/15/20 21:00 01:00 05:00 Temperature 98.4 F 98.3 F 97.6 F Pulse Rate 103 H 87 77 Pulse Rate [ Apical] Respiratory 18 18 18 Rate Blood Pressure 155/94 158/88 150/91 Blood Pressure [Right Arm] O2 Sat by Pulse 91 L 99 97 Oximetry (%) 03/15/20 03/15/20 08:30 08:31 Temperature 97.8 F Pulse Rate 72 Pulse Rate [ Apical] Respiratory 18 Rate Blood Pressure 142/87 Blood Pressure [Right Arm] O2 Sat by Pulse 100 100 Oximetry (%) GENERAL: Awake, alert, and fully oriented, on 2L NC HEAD: Normal with no signs of trauma. EYES: PERRLA, EOMI, sclera anicteric, conjunctiva clear. EARS, NOSE, THROAT: Moist mucous membranes. NECK: Normal range of motion, supple LUNGS: Breath sounds equal, clear to auscultation bilaterally. HEART: Regular rate and rhythm, normal S1 and S2 BREAST: symmetrical, no discoloration, no discharge, no masses, no axillary LAD ABDOMEN: Soft, nontender, not distended, normoactive bowel sounds LOWER EXTREMITIES: 2+ pulses, warm, well-perfused. No peripheral edema. NEUROLOGICAL: Cranial nerves II-XII intact. Normal speech. PSYCHIATRIC: Cooperative. Good eye contact. Appropriate mood and affect. SKIN: Warm, dry, normal turgor Laboratory Results - last 24 hr 03/14/20 03/14/20 03/14/20 14:40 14:40 14:40 WBC 8.4 RBC 3.91 Hgb 13.3 Hct 39.0 MCV 99.8 H MCH 34.1 H MCHC 34.2 RDW 11.9 Plt Count 231 MPV 8.7 Absolute Neuts (auto) 6.5 Neutrophils % 78.1 Lymphocytes % 15.0 Monocytes % 4.8 Eosinophils % 1.4 Basophils % 0.7 PT with INR 11.4 INR 1.02 PTT (Actin FS) 20.8 L Sodium Potassium Chloride Carbon Dioxide Anion Gap BUN Creatinine Est GFR (CKD-EPI)AfAm Est GFR (CKD-EPI)NonAf Random Glucose Calcium Phosphorus Magnesium Total Bilirubin AST ALT Alkaline Phosphatase Creatine Kinase Troponin I Total Protein Albumin TSH Urine Color Urine Appearance Urine pH Urine Protein Urine Glucose (UA) Urine Ketones Urine Blood Urine Nitrite Urine Bilirubin Urine Urobilinogen Ur Leukocyte Esterase Urine RBC Urine WBC Urine Bacteria Blood Type B POSITIVE Antibody Screen Negative 03/14/20 03/14/20 03/14/20 15:00 15:00 15:45 WBC RBC Hgb Hct MCV MCH MCHC RDW Plt Count MPV Absolute Neuts (auto) Neutrophils % Lymphocytes % Monocytes % Eosinophils % Basophils % PT with INR INR PTT (Actin FS) Sodium 139 Potassium 4.1 Chloride 106 Carbon Dioxide 22 Anion Gap 11 BUN 27.0 H Creatinine 0.8 Est GFR (CKD-EPI)AfAm 82.42 Est GFR (CKD-EPI)NonAf 71.11 Random Glucose 89 Calcium 9.5 Phosphorus 3.6 Magnesium 1.9 Total Bilirubin 0.9 AST 249 H ALT 242 H Alkaline Phosphatase 119 H Creatine Kinase 85 Troponin I 0.06 H Total Protein 7.0 Albumin 4.1 TSH 1.37 Urine Color Yellow Urine Appearance Clear Urine pH 6.0 Urine Protein Negative Urine Glucose (UA) Negative Urine Ketones Negative Urine Blood Trace-intact Urine Nitrite Negative Urine Bilirubin Negative Urine Urobilinogen 0.2 Ur Leukocyte Esterase Trace H Urine RBC 0-2 Urine WBC 2-3 Urine Bacteria Few Blood Type Antibody Screen 03/14/20 03/14/20 03/15/20 21:00 23:00 07:28 WBC RBC Hgb Hct MCV MCH MCHC RDW Plt Count MPV Absolute Neuts (auto) Neutrophils % Lymphocytes % Monocytes % Eosinophils % Basophils % PT with INR INR PTT (Actin FS) 100.0 H Sodium Potassium Chloride Carbon Dioxide Anion Gap BUN Creatinine Est GFR (CKD-EPI)AfAm Est GFR (CKD-EPI)NonAf Random Glucose Calcium Phosphorus Magnesium Total Bilirubin AST ALT Alkaline Phosphatase Creatine Kinase Troponin I 0.63 H* 0.05 Total Protein Albumin TSH Urine Color Urine Appearance Urine pH Urine Protein Urine Glucose (UA) Urine Ketones Urine Blood Urine Nitrite Urine Bilirubin Urine Urobilinogen Ur Leukocyte Esterase Urine RBC Urine WBC Urine Bacteria Blood Type Antibody Screen 03/15/20 07:28 WBC RBC Hgb Hct MCV MCH MCHC RDW Plt Count MPV Absolute Neuts (auto) Neutrophils % Lymphocytes % Monocytes % Eosinophils % Basophils % PT with INR INR PTT (Actin FS) Sodium Potassium Chloride Carbon Dioxide Anion Gap BUN Creatinine Est GFR (CKD-EPI)AfAm Est GFR (CKD-EPI)NonAf Random Glucose Calcium Phosphorus Magnesium Total Bilirubin AST ALT Alkaline Phosphatase Creatine Kinase 81 Troponin I Total Protein Albumin TSH Urine Color Urine Appearance Urine pH Urine Protein Urine Glucose (UA) Urine Ketones Urine Blood Urine Nitrite Urine Bilirubin Urine Urobilinogen Ur Leukocyte Esterase Urine RBC Urine WBC Urine Bacteria Blood Type Antibody Screen Active Medications Generic Name Dose Route Start Last Admin Trade Name Freq PRN Reason Stop Dose Admin Docusate Sodium 100 mg 03/15/20 09:31 Colace - PO Q8H PRN CONSTIPATION Heparin Sodium (Porcine) 1,000 unit 03/14/20 16:18 Heparin - IVPUSH PRN PRN Heparin Heparin Sodium (Porcine) 5,000 unit 03/14/20 16:18 03/14/20 16:50 Heparin - IVPUSH 5,000 unit PRN PRN Administration Heparin Heparin Sodium (Porcine) 25, 500 mls @ 16 mls/hr 03/14/20 16:30 03/14/20 16:55 000 unit/ Sodium Chloride IV 800 unit/hr TITR LIBBY 16 mls/hr Administration Protocol 800 UNIT/HR Senna 2 tab 03/15/20 09:31 Senna - PO HS PRN CONSTIPATION ASSESSMENT/PLAN: Patient is a 75 year old female with past medical history of Raynaud's syndrome, anxiety, previous hx of PE (about 35 years ago), presented to the ED due to persistent dyspnea on exertion and chest tightness for 1 week. We have been asked to medically evaluate this patient for unprovoked PE. #Submassive pulmonary embolism -unprovoked -chest CTA revealed large bilateral PE within the left pulmonary and right pulmonary arteries. -on heparin gtt, would probably need to be on AC indefinitely -Echo pending -LE US to r/o DVT -IR consulted for possible thrombolysis -supplemental oxygen -age appropriate cancer screening -thrombophilia workup -- including Factor V Leiden, Prothrombin gene [id number], Protein C and S ag and act, Antithrombin III ag and act, APS and Lupus panel #Macrocytosis -possible 2/2 liver disease -RUQ US revealing fatty liver, hepatitis panel pending -will order b12, folate, ldh, retic count Dispo: We will continue to follow the patient. Thank you for this consultative opportunity. Visit type - Medication Review Med list reviewed for High Risk Meds patients 65 and older: Yes - Emergency Visit Emergency Visit: Yes ED Registration Date: 03/14/20 Care time: The patient presented to the Emergency Department on the above date and was hospitalized for further evaluation of their emergent condition. - New Patient This patient is new to me today: Yes Date on this admission: 03/15/20 - Critical Care Critical Care patient: No ATTENDING PHYSICIAN STATEMENT I saw and evaluated the patient. I reviewed the resident's note and discussed the case with the resident. I agree with the resident's findings and plan as documented. SUBJECTIVE: OBJECTIVE: ASSESSMENT AND PLAN:
[2020-03-15 12:45] LABS: HEMATOCRIT 38.7 % (32.4-45.2); HEMOGLOBIN 12.7 GM/dL (10.7-15.3); MCH 32.9 pg (25.7-33.7); MCHC 32.9 g/dl (32.0-36.0); MEAN CELL VOLUME 99.8 fl (80-96); MEAN PLT VOLUME 9.2 fl (7.5-11.1); PLATELET COUNT 197 K/MM3 (134-434); RBC 3.88 M/mm3 (3.60-5.2); WHITE BLOOD COUNT 7.1 K/mm3 (4.0-10.0)
[2020-03-15 13:12] LABS: ALBUMIN 3.5 g/dl (3.4-5.0); BILIRUBIN,TOTAL 0.6 mg/dL (0.2-1); BLOOD UREA NITROGEN 20.3 mg/dL (7-18); CALCIUM 8.9 mg/dL (8.5-10.1); CREATININE 0.7 mg/dL (0.55-1.3); MAGNESIUM 2.2 mg/dL (1.8-2.4); N-TERMINAL BNP 2864.1 pg/ml (5-450); PHOSPHOROUS 3.2 mg/dL (2.5-4.9); TOT PROT 6.6 g/dl (6.4-8.2)
[2020-03-15] MEDS: HEPARIN - 25,000 UNIT in SODIUM CHLORIDE 495 ML IV SCH (13:13)
--- NOTE | 2020-03-15 13:51 | ECHO ---
Version: 1 Name: JAXSON PATEL Exam: Adult Echocardiogram Study Date: 03/15/2020, 1:02 PM Age: 75 Years MMode/2D Measurements & Calculations IVSd: 1.04 cm LVIDs: 1.81 cm LVIDd: 2.43 cm LVPWd: 1.15 cm LAV (MOD-bp): 47.0 ml ACS: 1.45 cm Ao root diam: 2.26 cm LVOT diam: 1.79 cm LA dimension: 3.0 cm Doppler Measurements & Calculations MV E max bennie: 42.9 cm/sec Med E/e': 10.0 MV A max bennie: 82.4 cm/sec Med Peak E' Bennie: 4.3 cm/sec MV E/A: 0.52 Lat E/e': 11.9 Lat Peak E' Bennie: 3.6 cm/sec Ao max P.9 mmHg Ao V2 max: 110.8 cm/sec TR max bennie: 313.5 cm/sec TR max P.4 mmHg Left Ventricle The left ventricular size, thickness and function are normal. Ejection Fraction = 55-60%. The transm itral spectral Doppler flow pattern is suggestive of impaired LV relaxation. Right Ventricle The right ventricle is mildly dilated. The right ventricular systolic function is mildly reduced. Atria The left atrium is mildly dilated. Right atrial size is normal. Mitral Valve The mitral valve is normal in structure and function. There is no mitral valve stenosis. There is mi ld mitral regurgitation. Tricuspid Valve The tricuspid valve is not well visualized, but is grossly normal. There is mild tricuspid regurgita tion. Right ventricular systolic pressure is elevated at 40-50mmHg. Aortic Valve There is mild aortic sclerosis.;. No hemodynamically significant valvular aortic stenosis. No aortic regurgitation is present. Pulmonic Valve The pulmonic valve is not well seen, but is grossly normal. There is no pulmonic valvular stenosis. There is no pulmonic valvular regurgitation. Great Vessels The aortic root is normal size. Pericardium/Pleura There is no pericardial effusion. Summary Statements The left ventricular size, thickness and function are normal Ejection Fraction = 55-60%. The transmitral spectral Doppler flow pattern is suggestive of impaired LV relaxation. The right ventricle is mildly dilated. The right ventricular systolic function is mildly reduced. The left atrium is mildly dilated. There is mild mitral regurgitation. There is mild tricuspid regurgitation. Right ventricular systolic pressure is elevated at 40-50mmHg. There is mild aortic sclerosis.; There is no pericardial effusion. MD Ordonez *Liliana 03/15/2020, 1:50 PM Ordering Physician: José Luis Barrow Referring Physician: JOSÉ LUIS BARROW Performed By: Jessy Gutierrez
--- NOTE | 2020-03-15 16:29 | CONS ---
DATE OF CONSULTATION: 03/15/2020 PULMONARY CONSULTATION REFERRING PHYSICIAN: RUBENS Conn HISTORY OF PRESENT ILLNESS: The patient is a 75-year-old female with a past medical history Raynaud's, history of tobacco use 30 years quit 32 years ago, panic attacks, UTIs, previous thrombosed vein in the right chest approximately 40 years ago now treated with anticoagulation, admitted to [facility] on March 14 with complaint of shortness of breath and chest tightness x1 week. Patient states over the last week WednesdayMarch 08, she started to develop shortness of breath and dyspnea on exertion. She noticed that breathing has gotten progressively worse. She denied any chest pain, although had chest heaviness. Denied any fever or chills. She went to [place] and had a COVID test which subsequently turned negative. She denied any fevers or chills, denied nausea, vomiting or diaphoresis, denied any loss of taste or smell. Symptoms continue to worsen with significant dyspnea on minimal exertion. She went to [facility] at [place], had a CTA performed which revealed large bilateral pulmonary emboli with right heart strain. Patient admitted and started on IV heparin, transferred to [facility] telemetry unit for further monitoring. The patient denies any recent travel. There is no history of sedentary lifestyle. Denies any history of DVT or PE in the past. Reports no family history of DVT. Denies any history of underlying malignancy. PAST MEDICAL HISTORY: Again includes Raynaud's, history of tobacco use quit 30 years ago, panic attacks, UTIs, previously thrombosed vein in the right chest. CURRENT MEDICATIONS: Include: 1. Heparin. 2. Colace. 3. Senna. REVIEW OF SYSTEMS: No orthopnea. No PND. Positive dyspnea on exertion. No chest pain. No palpitations. No nausea. No vomiting. PHYSICAL EXAMINATION: General: The patient is a well-developed, well-nourished female awake, alert, in no acute distress. She is afebrile. Vital Signs: Blood pressure 150/74, respiratory rate 20, O2 saturation is 100% on 2 L nasal cannula. HEENT: Normocephalic, atraumatic. Neck: Supple. Heart: Regular S1, S2. Chest: Clear. Abdomen: Soft, bowel sounds positive. Extremities: No cyanosis, edema. LABORATORY: WBC 7.1, hemoglobin 12.7, hematocrit 38.7, platelet count 197,000. AST is 156, ALT is 260, alkaline phosphatase is 124, BNP is 2864, troponin initially is 0.63, most recent is today at 0.05. Chest CT as noted earlier. IMPRESSION: 1. Acute submassive pulmonary embolism, unprovoked. 2. History of Raynaud's. 3. History of panic attacks. PLAN: Supplemental O2. Anticoagulation. Obtain echo. Trend troponins. COVID PCR pending. Age-appropriate cancer screening. Workup hypocoagulable state as an outpatient. LUCHO HAYWARD M.D. FOREST/[id number]
[2020-03-15 20:59] LABS: RETICULOCYTES 1.45 % (0.5-1.5)
--- NOTE | 2020-03-16 06:13 | PN ---
Teaching Attending Note Name of Resident: Kierra Ghosh ATTENDING PHYSICIAN STATEMENT I saw and evaluated the patient. I reviewed the resident's note and discussed the case with the resident. I agree with the resident's findings and plan as documented. ASSESSMENT AND PLAN: 75 year old female with past medical history of Raynaud's syndrome, anxiety, previous hx of PE (about 35 years ago), presented to the ED due to persistent dyspnea on exertion and chest tightness for 1 week. We have been asked to medically evaluate this patient for unprovoked PE. #Submassive pulmonary embolism -unprovoked -chest CTA revealed large bilateral PE within the left pulmonary and right pulmonary arteries - Duplex negative -on heparin gtt, discussed pros/cons of various a/c options, including lack of antidote with eliquis discussed need to get age appropriate cancer screening discussed need for long-term a/c with periodic assessment of risks/benefits
--- NOTE | 2020-03-16 06:39 | PN ---
Progress Note, Physician History of Present Illness: pulmonary alert,comfortable,-cp,-sob - Current Medication List Current Medications: Active Medications Docusate Sodium (Colace -) 100 mg PO Q8H PRN PRN Reason: CONSTIPATION Heparin Sodium (Porcine) (Heparin -) 1,000 unit IVPUSH PRN PRN PRN Reason: Heparin Heparin Sodium (Porcine) (Heparin -) 5,000 unit IVPUSH PRN PRN PRN Reason: Heparin Last Admin: 03/14/20 16:50 Dose: 5,000 unit Documented by: Heparin Sodium (Porcine) 25, (000 unit/ Sodium Chloride) 500 mls @ 16 mls/hr IV TITR LIBBY; Protocol Last Titration: 03/15/20 21:43 Dose: 750 unit/hr, 15 mls/hr Documented by: Senna (Senna -) 2 tab PO HS PRN PRN Reason: CONSTIPATION - Objective Vital Signs: Vital Signs Temperature 97.9 F 03/16/20 02:00 Pulse Rate 92 H 03/16/20 02:00 Respiratory Rate 20 03/16/20 02:00 Blood Pressure 154/94 03/16/20 02:00 O2 Sat by Pulse Oximetry (%) 98 03/16/20 02:00 Constitutional: Yes: Well Nourished, Calm Eyes: Yes: WNL HENT: Yes: WNL Neck: Yes: WNL Cardiovascular: Yes: Regular Rate and Rhythm, S1, S2 Respiratory: Yes: CTA Bilaterally Gastrointestinal: Yes: Normal Bowel Sounds, Soft Edema: No Peripheral Pulses WNL: No Labs: CBC, BMP 03/15/20 11:03 Problem List - Problems (1) Bilateral pulmonary embolism Code(s): I26.99 - OTHER PULMONARY EMBOLISM WITHOUT ACUTE COR PULMONALE (2) Elevated LFTs Code(s): R79.89 - OTHER SPECIFIED ABNORMAL FINDINGS OF BLOOD CHEMISTRY (3) Elevated troponin Code(s): R79.89 - OTHER SPECIFIED ABNORMAL FINDINGS OF BLOOD CHEMISTRY (4) Raynaud's syndrome Code(s): I73.00 - RAYNAUD'S SYNDROME WITHOUT GANGRENE (5) SOB (shortness of breath) Code(s): R06.02 - SHORTNESS OF BREATH Assessment/Plan IMP ACUTE SUB-MASSIVE PULMONARY EMBOLISM UNPROVOKED RAYNAUDS H/O PANIC ATTACKS PLAN SUPPLEMENTAL O2 AC ELIQUIS COVID PCR NEGATIVE AGE APPROPRIATE CANCER SCREENING W/U FOR HYPERCOAGULABLE STATE OUTPATIENT DR HAYWARD Problem List - Problems (1) Bilateral pulmonary embolism Code(s): I26.99 - OTHER PULMONARY EMBOLISM WITHOUT ACUTE COR PULMONALE (2) Elevated LFTs Code(s): R79.89 - OTHER SPECIFIED ABNORMAL FINDINGS OF BLOOD CHEMISTRY (3) Elevated troponin Code(s): R79.89 - OTHER SPECIFIED ABNORMAL FINDINGS OF BLOOD CHEMISTRY (4) Raynaud's syndrome Code(s): I73.00 - RAYNAUD'S SYNDROME WITHOUT GANGRENE (5) SOB (shortness of breath) Code(s): R06.02 - SHORTNESS OF BREATH
[2020-03-16 07:53] LABS: BASO % 0.4 % (0-2.0); EOS % 1.3 % (0-4.5); HEMATOCRIT 35.9 % (32.4-45.2); HEMOGLOBIN 12.3 GM/dL (10.7-15.3); LYMPH % 14.3 % (8-40); MCH 34.2 pg (25.7-33.7); MCHC 34.2 g/dl (32.0-36.0); MEAN CELL VOLUME 99.8 fl (80-96); MONO % 6.9 % (3.8-10.2); NEUT % 77.1 % (42.8-82.8); PLATELET COUNT 184 K/MM3 (134-434); RDW 12.5 % (11.6-15.6); WHITE BLOOD COUNT 8.5 K/mm3 (4.0-10.0)
[2020-03-16 08:10] LABS: ALBUMIN 3.3 g/dl (3.4-5.0); BLOOD UREA NITROGEN 22.7 mg/dL (7-18); CALCIUM 8.6 mg/dL (8.5-10.1); CREATININE 0.8 mg/dL (0.55-1.3); MAGNESIUM 2.1 mg/dL (1.8-2.4); PHOSPHOROUS 3.4 mg/dL (2.5-4.9); POTASSIUM 4.1 mmol/L (3.5-5.1)
[2020-03-16 08:11] LABS: BILIRUBIN,TOTAL 0.6 mg/dL (0.2-1); TOT PROT 6.2 g/dl (6.4-8.2)
--- NOTE | 2020-03-16 11:17 | PN ---
Progress Note (short form) - Note Progress Note: s: no cp sob palps dizzy Current Medications Generic Name Dose Route Start Last Admin Trade Name Freq PRN Reason Stop Dose Admin Docusate Sodium 100 mg 03/15/20 09:31 Colace - PO Q8H PRN CONSTIPATION Heparin Sodium (Porcine) 1,000 unit 03/14/20 16:18 Heparin - IVPUSH PRN PRN Heparin Heparin Sodium (Porcine) 5,000 unit 03/14/20 16:18 03/14/20 16:50 Heparin - IVPUSH 5,000 unit PRN PRN Administration Heparin Heparin Sodium (Porcine) 25, 500 mls @ 16 mls/hr 03/14/20 16:30 03/15/20 21:43 000 unit/ Sodium Chloride IV 750 unit/hr TITR LIBBY 15 mls/hr Titration Protocol 800 UNIT/HR Senna 2 tab 03/15/20 09:31 Senna - PO HS PRN CONSTIPATION Vital Signs Period Temp Pulse Resp BP Sys/Crouch Pulse Ox Last 24 Hr 97.7 F-98.6 F 81-94 20-20 142-154/80-94 97-99 Constitutional: Yes: No Distress Eyes: Yes: Conjunctiva Clear HENT: Yes: Atraumatic Neck: Yes: Trachea Midline Respiratory: Yes: Regular, CTA Bilaterally Gastrointestinal: Yes: Soft (nt) Cardiovascular: Yes: Regular Rate and Rhythm JVD: No Carotid Bruit: No PMI: Non-Displaced Heart Sounds: Yes: S1, S2 (rrr) Edema: No (Negative Monica's b/l) Peripheral Pulses WNL: Yes Integumentary: Yes: WNL Neurological: Yes: Alert, Oriented CBC, BMP 03/16/20 05:20 03/16/20 05:20 ST 103, LAE, poor R wave progression, NSST changes echo 03/2020: nl lv, mild rve, mild dec rv fcn, mild mr, mild tr, rvsp 40-50, lae tele: sr, brief episodes pat Imaging - Results Cat Scan: Report Reviewed (large b/l pulmonary emboli), Image Reviewed Assessment/Plan IMP: Large bilateral pulmomary emboli with evidence of right heart strain and elevated TnI Hemodynamically stable REC: 1. Pulmonary emboli: -Continue anticoagulation. -Echo showing mild RV strain -Recommend consulting Interventonal Radiology -age appropriate cancer screening -Heme evaluation -Supp O2
--- NOTE | 2020-03-16 14:10 | PN ---
Physical Exam: SUBJECTIVE: Patient seen and examined at bedside, admitted for unprovoked submassive PE, has h/o ?provoked RUE DVT 30 years ago, now p/w sudden VILLANUEVA and RV strain on Echo. On Heparin gtt, VSS. OBJECTIVE: Vital Signs Period Temp Pulse Resp BP Sys/Crouch Pulse Ox Last 24 Hr 97.7 F-98.6 F 81-94 20-20 142-154/80-94 97-99 GA comfortable, answering to questions, NAD HEENT NC/AT, no stridor, no JVD, neck supple, Dry MM Chest decreased BS b/l, no increased WOB CVs s1, S2+, RRR, soft SHON+ Abd Soft, NT, ND, BS+ Ext no LE edema, no calf tenderness Laboratory Results - last 24 hr 03/14/20 03/15/20 03/15/20 16:50 07:28 11:03 WBC 7.1 RBC 3.88 Hgb 12.7 Hct 38.7 MCV 99.8 H MCH 32.9 MCHC 32.9 RDW 13.0 Plt Count 197 MPV 9.2 Absolute Neuts (auto) Neutrophils % Lymphocytes % Monocytes % Eosinophils % Basophils % Nucleated RBC % Retic Count 1.45 PTT (Actin FS) Sodium Potassium Chloride Carbon Dioxide Anion Gap BUN Creatinine Est GFR (CKD-EPI)AfAm Est GFR (CKD-EPI)NonAf Random Glucose Calcium Phosphorus Magnesium Total Bilirubin AST ALT Alkaline Phosphatase LD Total B-Natriuretic Peptide Total Protein Albumin Vitamin B12 Serum Folate COVID-19 (IVAN) Not detected Hepatitis C Ab (EIA) <0.1 03/15/20 03/15/20 03/16/20 11:03 20:00 05:20 WBC RBC Hgb Hct MCV MCH MCHC RDW Plt Count MPV Absolute Neuts (auto) Neutrophils % Lymphocytes % Monocytes % Eosinophils % Basophils % Nucleated RBC % Retic Count PTT (Actin FS) 55.5 H 63.5 H Sodium 139 Potassium 4.0 Chloride 106 Carbon Dioxide 27 Anion Gap 6 L BUN 20.3 H Creatinine 0.7 Est GFR (CKD-EPI)AfAm 96.86 Est GFR (CKD-EPI)NonAf 83.57 Random Glucose 83 Calcium 8.9 Phosphorus 3.2 Magnesium 2.2 Total Bilirubin 0.6 AST 156 H ALT 260 H Alkaline Phosphatase 121 H LD Total 309 H B-Natriuretic Peptide 2864.1 H Total Protein 6.6 Albumin 3.5 Vitamin B12 534 Serum Folate 11 COVID-19 (IVAN) Hepatitis C Ab (EIA) 03/16/20 03/16/20 05:20 05:20 WBC 8.5 RBC 3.60 Hgb 12.3 Hct 35.9 MCV 99.8 H MCH 34.2 H MCHC 34.2 RDW 12.5 Plt Count 184 MPV 9.0 Absolute Neuts (auto) 6.6 Neutrophils % 77.1 Lymphocytes % 14.3 Monocytes % 6.9 Eosinophils % 1.3 Basophils % 0.4 Nucleated RBC % 0 Retic Count PTT (Actin FS) Sodium 140 Potassium 4.1 Chloride 108 H Carbon Dioxide 25 Anion Gap 7 L BUN 22.7 H Creatinine 0.8 Est GFR (CKD-EPI)AfAm 82.42 Est GFR (CKD-EPI)NonAf 71.11 Random Glucose 88 Calcium 8.6 Phosphorus 3.4 Magnesium 2.1 Total Bilirubin 0.6 AST 104 H ALT 207 H Alkaline Phosphatase 112 LD Total B-Natriuretic Peptide Total Protein 6.2 L Albumin 3.3 L Vitamin B12 Serum Folate COVID-19 (IVAN) Hepatitis C Ab (EIA) Active Medications Generic Name Dose Route Start Last Admin Trade Name Freq PRN Reason Stop Dose Admin Docusate Sodium 100 mg 03/15/20 09:31 Colace - PO Q8H PRN CONSTIPATION Heparin Sodium (Porcine) 1,000 unit 03/14/20 16:18 Heparin - IVPUSH PRN PRN Heparin Heparin Sodium (Porcine) 5,000 unit 03/14/20 16:18 03/14/20 16:50 Heparin - IVPUSH 5,000 unit PRN PRN Administration Heparin Heparin Sodium (Porcine) 25, 500 mls @ 16 mls/hr 03/14/20 16:30 03/15/20 21:43 000 unit/ Sodium Chloride IV 750 unit/hr TITR LIBBY 15 mls/hr Titration Protocol 800 UNIT/HR Senna 2 tab 03/15/20 09:31 Senna - PO HS PRN CONSTIPATION ASSESSMENT/PLAN: 75 F Unprovoked sub-massive PE Former smoker h/o RUE provoked DVT Panic disorder h/o Raynaud's Plan: Cont. Heparin gtt Cardiology will need to discuss DOAC with patient for likely life-long Supplement bowel regimen Cont. tele monitoring Heme-Onc evaluation for hypercoaguable state Visit type - Emergency Visit Emergency Visit: Yes ED Registration Date: 03/14/20 Care time: The patient presented to the Emergency Department on the above date and was hospitalized for further evaluation of their emergent condition. - New Patient This patient is new to me today: Yes Date on this admission: 03/16/20 - Critical Care Critical Care patient: No - Discharge Referral Referred to [facility] Med P.C[facility] No - Medication Review Med list reviewed for High Risk Meds patients 65 and older: Yes
[2020-03-16 21:06] LABS: HEP B CORE AB, TOT Negative (Negative)
[2020-03-16] MEDS: HEPARIN - 25,000 UNIT in SODIUM CHLORIDE 495 ML IV SCH (22:26)
--- NOTE | 2020-03-17 06:45 | PN ---
Progress Note, Physician History of Present Illness: PULMONARY ALEERT,COMFORTABLE AT REST,+ VILLANUEVA,OCC MILD ATYPICAL CP - Current Medication List Current Medications: Active Medications Docusate Sodium (Colace -) 100 mg PO Q8H PRN PRN Reason: CONSTIPATION Heparin Sodium (Porcine) (Heparin -) 1,000 unit IVPUSH PRN PRN PRN Reason: Heparin Heparin Sodium (Porcine) (Heparin -) 5,000 unit IVPUSH PRN PRN PRN Reason: Heparin Last Admin: 03/14/20 16:50 Dose: 5,000 unit Documented by: Heparin Sodium (Porcine) 25, (000 unit/ Sodium Chloride) 500 mls @ 16 mls/hr IV TITR LIBBY; Protocol Last Admin: 03/16/20 22:26 Dose: 750 unit/hr, 15 mls/hr Documented by: Pantoprazole Sodium (Protonix -) 20 mg PO BID LIBBY Senna (Senna -) 2 tab PO HS PRN PRN Reason: CONSTIPATION - Objective Vital Signs: Vital Signs Temperature 98.2 F 03/17/20 05:50 Pulse Rate 78 03/17/20 05:50 Respiratory Rate 20 03/17/20 05:50 Blood Pressure 155/80 03/17/20 05:50 O2 Sat by Pulse Oximetry (%) 100 03/17/20 05:50 Constitutional: Yes: Well Nourished, Calm Eyes: Yes: WNL HENT: Yes: WNL Neck: Yes: WNL Cardiovascular: Yes: Regular Rate and Rhythm, S1, S2 Respiratory: Yes: CTA Bilaterally Gastrointestinal: Yes: Normal Bowel Sounds, Soft Extremities: Yes: WNL Edema: No Labs: Problem List - Problems (1) Bilateral pulmonary embolism Code(s): I26.99 - OTHER PULMONARY EMBOLISM WITHOUT ACUTE COR PULMONALE (2) Elevated LFTs Code(s): R79.89 - OTHER SPECIFIED ABNORMAL FINDINGS OF BLOOD CHEMISTRY (3) Elevated troponin Code(s): R79.89 - OTHER SPECIFIED ABNORMAL FINDINGS OF BLOOD CHEMISTRY (4) Raynaud's syndrome Code(s): I73.00 - RAYNAUD'S SYNDROME WITHOUT GANGRENE (5) SOB (shortness of breath) Code(s): R06.02 - SHORTNESS OF BREATH Assessment/Plan IMP ACUTE SUB-MASSIVE PULMONARY EMBOLISM UNPROVOKED RAYNAUDS H/O PANIC ATTACKS PLAN SUPPLEMENTAL O2 AC ELIQUIS COVID PCR NEGATIVE AGE APPROPRIATE CANCER SCREENING W/U FOR HYPERCOAGULABLE STATE OUTPATIENT DR HAYWARD Problem List - Problems (1) Bilateral pulmonary embolism Code(s): I26.99 - OTHER PULMONARY EMBOLISM WITHOUT ACUTE COR PULMONALE (2) Elevated LFTs Code(s): R79.89 - OTHER SPECIFIED ABNORMAL FINDINGS OF BLOOD CHEMISTRY (3) Elevated troponin Code(s): R79.89 - OTHER SPECIFIED ABNORMAL FINDINGS OF BLOOD CHEMISTRY (4) Raynaud's syndrome Code(s): I73.00 - RAYNAUD'S SYNDROME WITHOUT GANGRENE (5) SOB (shortness of breath) Code(s): R06.02 - SHORTNESS OF BREATH
[2020-03-17 06:46] LABS: BASO % 0.5 % (0-2.0); EOS % 1.5 % (0-4.5); HEMATOCRIT 37.1 % (32.4-45.2); HEMOGLOBIN 12.5 GM/dL (10.7-15.3); LYMPH % 18.7 % (8-40); MCH 33.8 pg (25.7-33.7); MCHC 33.8 g/dl (32.0-36.0); MEAN CELL VOLUME 99.9 fl (80-96); MEAN PLT VOLUME 8.3 fl (7.5-11.1); MONO % 7.3 % (3.8-10.2); PLATELET COUNT 199 K/MM3 (134-434); RBC 3.72 M/mm3 (3.60-5.2); RDW 12.7 % (11.6-15.6); WHITE BLOOD COUNT 7.1 K/mm3 (4.0-10.0)
[2020-03-17 07:12] LABS: ALBUMIN 3.3 g/dl (3.4-5.0); BILIRUBIN,TOTAL 0.8 mg/dL (0.2-1); BLOOD UREA NITROGEN 19.9 mg/dL (7-18); CALCIUM 8.3 mg/dL (8.5-10.1); CREATININE 0.8 mg/dL (0.55-1.3); POTASSIUM 3.8 mmol/L (3.5-5.1); TOT PROT 6.3 g/dl (6.4-8.2)
[2020-03-17] MEDS: HEPARIN - 25,000 UNIT in SODIUM CHLORIDE 495 ML IV SCH ×2 (09:00→22:03)
[2020-03-17] MEDS: PANTOPRAZOLE 20 MG TABLET PO SCH ×2 (09:33→22:03)
--- NOTE | 2020-03-17 10:13 | CON.GI ---
Consult Consult Specialty:: GI Referred by:: Dr Villa Reason for Consultation:: abnormal liver chemistries - History of Present Illness Chief Complaint: 75 y.o. woman presented to hospital with exertional dyspnea, shown on CT to be massive bilateral pulmonary emboli. Unprovoked, and no DVT identified on ultrasound exam of legs. History of Present Illness: See chief complaint. LFTs: Hepatic Panel Total Bilirubin 0.8 mg/dL (0.2-1) 03/17/20 05:43 AST 66 U/L (15-37) H 03/17/20 05:43 ALT 161 U/L (13-61) H 03/17/20 05:43 Alkaline Phosphatase 104 U/L (45-117) 03/17/20 05:43 Albumin 3.3 g/dl (3.4-5.0) L 03/17/20 05:43 Pt says her liver chemistries have always been normal before. - History Source History Provided By: Patient, Medical Record Limitations to Obtaining History: No Limitations - Past Medical History CERT OCCUPATIONAL THERAPY ASST: No: Alzheimer's, CVA, Dementia, Migraine, Multiple Sclerosis, Peripheral Neuropathy, Parkinson's, Seizure, Syncope, TIA, Vertigo, Other Cardio/Vascular: No: AFIB, Aneurysm, Aortic Insufficiency, Aortic Stenosis, CAD, CHF, Deep Vein Thrombosis, HTN, Hyperlipdemia, MA, Mitral Insufficiency, Mitral Stenosis, Murmur, Pulmonary Hypertension, Other Pulmonary: No: Asthma, Bronchitis, Cancer, COPD, O2 Dependent, Pneumonia, Previously Intubated, Pulmonary Embolus, Pulmonary Fibrosis, Sleep Apnea, Other Gastrointestinal: No: Ascites, Cancer, Constipation, Crohn's Disease, Divertic ulitis, Diverticulosis, Esophageal Varices, Gastritis, GERD, GI Bleed, Hemorrhoids, Hiatal Hernia, Inflamatory Bowel Disease, Irritable Bowel Disease, Pancreatitis, Peptic Ulcer Disease, Ulcerative Colitis, Other Hepatobiliary: No: Cirrhosis, Cholelithiasis, Cholecystitis, C holedocholithiasis, Hepatitis A, Hepatitis B, Hepatitis C, Other Renal/: Yes: UTI ...: No Heme/Onc: Yes: Other (Had venous thrombosis in neck (?subclavian) many years ago, was on warfarin x 6 months.) Infectious Disease: No: AIDS, C-Diff, Herpes Zoster, HIV, MRSA, STD's, Tuberculosis, VREF, Other Psych: Yes: Panic Rheumatology: Yes: Other (Raynaud's Syndrome) Endocrine: No: [place]'s Disease, Garrison's Disease, Diabetes Insipidus, Diabetes Mellitus, Hyperparathyroidism, Hyperthyroidism, Hypothyroidism, Osteope kyrie, SIADH, Other Dermatology: No: Basal Cell, Cellulitis, Eczema, Melanoma, Psoriasis, Squamous Cell, Other - Past Surgical History Past Surgical History: Yes: None - Alcohol/Substance Use Hx Alcohol Use: Yes (1-2 drinks daily) History of Substance Use: reports: None - Smoking History Smoking history: Former smoker Have you smoked in the past 12 months: No If you are a former smoker, when did you quit?: 1987 - Social History Usual Living Arrangement: With Spouse ADL: Independent Occupation: Retired- Slide Attendant History of Recent Travel: No Home Medications - Allergies Allergies/Adverse Reactions: Allergies Allergy/AdvReac Type Severity Reaction Status Date / Time No Known Allergies Allergy Verified 03/14/20 14:21 - Home Medications Home Medications: Ambulatory Orders NK [No Known Home Medication] 03/14/20 Family Medical History Family History: Unremarkable Family Hx Congestive Heart Failure: Father, Brother (-71) Family Hx Coronary Artery Disease: Mother (MA) Family Hx Respiratory Disorders: Brother (COPD- 71) Physical Exam-GI Vital Signs: Vital Signs Temperature 98.2 F 03/17/20 05:50 Pulse Rate 78 03/17/20 05:50 Respiratory Rate 20 03/17/20 05:50 Blood Pressure 155/80 03/17/20 05:50 O2 Sat by Pulse Oximetry (%) 100 03/17/20 05:50 Constitutional: Yes: Well Nourished Gastrointestinal Inspection: Yes: WNL ...Palpate: No: Firm/Rigid, Guarding, Hepatomegaly, Mass, Pulsatile Mass, Soft, Splenomegaly, Tenderness, Tenderness, Epigastium, Tenderness, Rebound, Other Labs: CBC, BMP 03/17/20 05:43 03/17/20 05:43 INR, PTT INR 1.02 (0.82-1.09) 03/14/20 14:40 Problem List - Problems (1) Elevated LFTs Code(s): R79.89 - OTHER SPECIFIED ABNORMAL FINDINGS OF BLOOD CHEMISTRY Assessment/Plan 1) Mild hepatic inflammation secondary to right heart dysfunction from large pulmonary emboli. This is a known consequence of large pulmonary emboli and there are case reports of aminotransferases in the thousands after this kind of insult. No further workup needed at this time other than following the liver chemistries as an outpatient. 2) Unprovoked pulmonary emboli. If no hematologic abnormality is found (such as protein C deficiency), the main concern would be Trousseau's syndrome, thrombosis in the setting of an occult malignancy. The commonest tumors to cause this are pancreatic and gastric. I discussed this with Ms Jung; she is willing to undergo screening tests after discharge.
--- NOTE | 2020-03-17 10:48 | PN ---
Progress Note (short form) - Note Progress Note: s: no cp sob dizzy le edema Current Medications Generic Name Dose Route Start Last Admin Trade Name Freq PRN Reason Stop Dose Admin Docusate Sodium 100 mg 03/15/20 09:31 Colace - PO Q8H PRN CONSTIPATION Heparin Sodium (Porcine) 1,000 unit 03/14/20 16:18 Heparin - IVPUSH PRN PRN Heparin Heparin Sodium (Porcine) 5,000 unit 03/14/20 16:18 03/14/20 16:50 Heparin - IVPUSH 5,000 unit PRN PRN Administration Heparin Heparin Sodium (Porcine) 25, 500 mls @ 16 mls/hr 03/14/20 16:30 03/16/20 22:26 000 unit/ Sodium Chloride IV 750 unit/hr TITR LIBBY 15 mls/hr Administration Protocol 800 UNIT/HR Pantoprazole Sodium 20 mg 03/17/20 10:00 03/17/20 09:33 Protonix - PO 20 mg BID LIBBY Administration Senna 2 tab 03/15/20 09:31 Senna - PO HS PRN CONSTIPATION Vital Signs Period Temp Pulse Resp BP Sys/Crouch Pulse Ox Last 24 Hr 97.9 F-98.7 F 78-86 20-20 150-156/80-96 98-100 Constitutional: Yes: No Distress Eyes: Yes: Conjunctiva Clear HENT: Yes: Atraumatic Neck: Yes: Trachea Midline Respiratory: Yes: Regular, CTA Bilaterally Gastrointestinal: Yes: Soft (nt) Cardiovascular: Yes: Regular Rate and Rhythm JVD: No Carotid Bruit: No PMI: Non-Displaced Heart Sounds: Yes: S1, S2 (rrr) Edema: No (Negative Monica's b/l) Peripheral Pulses WNL: Yes Integumentary: Yes: WNL Neurological: Yes: Alert, Oriented CBC, BMP 03/17/20 05:43 03/17/20 05:43 ST 103, LAE, poor R wave progression, NSST changes echo 03/2020: nl lv, mild rve, mild dec rv fcn, mild mr, mild tr, rvsp 40-50, lae tele: sr, brief episodes pat Imaging - Results Cat Scan: Report Reviewed (large b/l pulmonary emboli), Image Reviewed Assessment/Plan IMP: Large bilateral pulmomary emboli with evidence of right heart strain and elevated TnI Hemodynamically stable REC: 1. Pulmonary emboli: -Continue anticoagulation. -Echo showing mild RV strain -Recommend consulting Interventonal Radiology -age appropriate cancer screening -Heme evaluation -Supp O2 2 PAT: -tele showing brief atrial runs, benign -if pt has bothersome palps from this then could start toprol or dilt for symptom relief
--- NOTE | 2020-03-17 14:25 | PN ---
Physical Exam: SUBJECTIVE: Patient seen and examined at bedside, endorses some mild deep inspirational CP, saturating OK, BP stable. on Heparin Gtt. GI consulted for transaminitis. OBJECTIVE: Vital Signs Period Temp Pulse Resp BP Sys/Crouch Pulse Ox Last 24 Hr 97.7 F-98.6 F 81-94 20-20 142-154/80-94 97-99 GA comfortable, answering to questions, NAD HEENT NC/AT, no stridor, no JVD, neck supple, Dry MM Chest decreased BS b/l, no increased WOB CVs s1, S2+, RRR, soft SHON+ Abd Soft, NT, ND, BS+ Ext no LE edema, no calf tenderness Laboratory Results - last 24 hr 03/15/20 03/15/20 03/17/20 07:28 07:28 05:43 WBC RBC Hgb Hct MCV MCH MCHC RDW Plt Count MPV Absolute Neuts (auto) Neutrophils % Lymphocytes % Monocytes % Eosinophils % Basophils % Nucleated RBC % PTT (Actin FS) 54.0 H Sodium Potassium Chloride Carbon Dioxide Anion Gap BUN Creatinine Est GFR (CKD-EPI)AfAm Est GFR (CKD-EPI)NonAf Random Glucose Calcium Total Bilirubin AST ALT Alkaline Phosphatase Total Protein Albumin Hep A IgM Ab Confirm Negative Hepatitis A Ab Total Positive H Hep Bs Antigen Negative Hep Bs Antibody Non reactive Hep B Core Total Ab Negative Hep B Core IgM Ab Negative Hepatitis Be Antibody Negative Hepatitis Be Antigen Negative HCV Quantitation Hcv not detected HCV RNA log copies/mL [facility] 03/17/20 03/17/20 05:43 05:43 WBC 7.1 RBC 3.72 Hgb 12.5 Hct 37.1 MCV 99.9 H MCH 33.8 H MCHC 33.8 RDW 12.7 Plt Count 199 MPV 8.3 Absolute Neuts (auto) 5.1 Neutrophils % 72.0 Lymphocytes % 18.7 D Monocytes % 7.3 Eosinophils % 1.5 Basophils % 0.5 Nucleated RBC % 0 PTT (Actin FS) Sodium 141 Potassium 3.8 Chloride 109 H Carbon Dioxide 26 Anion Gap 7 L BUN 19.9 H Creatinine 0.8 Est GFR (CKD-EPI)AfAm 82.42 Est GFR (CKD-EPI)NonAf 71.11 Random Glucose 90 Calcium 8.3 L Total Bilirubin 0.8 AST 66 H ALT 161 H Alkaline Phosphatase 104 Total Protein 6.3 L Albumin 3.3 L Hep A IgM Ab Confirm Hepatitis A Ab Total Hep Bs Antigen Hep Bs Antibody Hep B Core Total Ab Hep B Core IgM Ab Hepatitis Be Antibody Hepatitis Be Antigen HCV Quantitation HCV RNA log copies/mL Active Medications Generic Name Dose Route Start Last Admin Trade Name Freq PRN Reason Stop Dose Admin Docusate Sodium 100 mg 03/15/20 09:31 Colace - PO Q8H PRN CONSTIPATION Heparin Sodium (Porcine) 1,000 unit 03/14/20 16:18 Heparin - IVPUSH PRN PRN Heparin Heparin Sodium (Porcine) 5,000 unit 03/14/20 16:18 03/14/20 16:50 Heparin - IVPUSH 5,000 unit PRN PRN Administration Heparin Heparin Sodium (Porcine) 25, 500 mls @ 16 mls/hr 03/14/20 16:30 03/16/20 22:26 000 unit/ Sodium Chloride IV 750 unit/hr TITR LIBBY 15 mls/hr Administration Protocol 800 UNIT/HR Pantoprazole Sodium 20 mg 03/17/20 10:00 03/17/20 09:33 Protonix - PO 20 mg BID LIBBY Administration Senna 2 tab 03/15/20 09:31 Senna - PO HS PRN CONSTIPATION ASSESSMENT/PLAN: 75 F Unprovoked sub-massive PE Former smoker h/o RUE provoked DVT Panic disorder h/o Raynaud's R foot pain, r/o fracture v.s. gouty attack Plan: Get R foot x-ray to r/o fracture, otherwise get Uric acid levels Cont. Heparin gtt Cardiology will need to discuss DOAC with patient for likely life-long Supplement bowel regimen Cont. tele monitoring Heme-Onc evaluation for hypercoaguable state Visit type - Emergency Visit Emergency Visit: Yes ED Registration Date: 03/14/20 Care time: The patient presented to the Emergency Department on the above date and was hospitalized for further evaluation of their emergent condition. - New Patient This patient is new to me today: No - Critical Care Critical Care patient: No - Discharge Referral Referred to [facility] No - Medication Review Med list reviewed for High Risk Meds patients 65 and older: Yes
--- NOTE | 2020-03-18 07:11 | PN ---
Progress Note, Physician History of Present Illness: PULMONARY ALERT,DYSPNEA IMPROVING,-CP - Current Medication List Current Medications: Active Medications Docusate Sodium (Colace -) 100 mg PO Q8H PRN PRN Reason: CONSTIPATION Heparin Sodium (Porcine) (Heparin -) 1,000 unit IVPUSH PRN PRN PRN Reason: Heparin Heparin Sodium (Porcine) (Heparin -) 5,000 unit IVPUSH PRN PRN PRN Reason: Heparin Last Admin: 03/14/20 16:50 Dose: 5,000 unit Documented by: Heparin Sodium (Porcine) 25, (000 unit/ Sodium Chloride) 500 mls @ 16 mls/hr IV TITR LIBBY; Protocol Last Admin: 03/17/20 22:03 Dose: 750 unit/hr, 15 mls/hr Documented by: Pantoprazole Sodium (Protonix -) 20 mg PO BID LIBBY Last Admin: 03/17/20 22:03 Dose: 20 mg Documented by: Senna (Senna -) 2 tab PO HS PRN PRN Reason: CONSTIPATION - Objective Vital Signs: Vital Signs Temperature 97.9 F 03/18/20 06:00 Pulse Rate 81 03/18/20 06:00 Respiratory Rate 20 03/18/20 06:00 Blood Pressure 154/91 03/18/20 06:00 O2 Sat by Pulse Oximetry (%) 98 03/17/20 21:00 Constitutional: Yes: Well Nourished, Calm Eyes: Yes: WNL HENT: Yes: WNL Neck: Yes: WNL Cardiovascular: Yes: Regular Rate and Rhythm, S1, S2 Respiratory: Yes: CTA Bilaterally Gastrointestinal: Yes: Normal Bowel Sounds, Soft Extremities: Yes: WNL Edema: No Labs: CBC, BMP 03/17/20 05:43 03/17/20 05:43 INR, PTT INR 1.02 (0.82-1.09) 03/14/20 14:40 Problem List - Problems (1) Bilateral pulmonary embolism Code(s): I26.99 - OTHER PULMONARY EMBOLISM WITHOUT ACUTE COR PULMONALE (2) Elevated LFTs Code(s): R79.89 - OTHER SPECIFIED ABNORMAL FINDINGS OF BLOOD CHEMISTRY (3) Elevated troponin Code(s): R79.89 - OTHER SPECIFIED ABNORMAL FINDINGS OF BLOOD CHEMISTRY (4) Raynaud's syndrome Code(s): I73.00 - RAYNAUD'S SYNDROME WITHOUT GANGRENE (5) SOB (shortness of breath) Code(s): R06.02 - SHORTNESS OF BREATH Assessment/Plan IMP ACUTE SUB-MASSIVE PULMONARY EMBOLISM UNPROVOKED RAYNAUDS H/O PANIC ATTACKS PLAN SUPPLEMENTAL O2 AC [place] MORGANID PCR NEGATIVE AGE APPROPRIATE CANCER SCREENING W/U FOR HYPERCOAGULABLE STATE OUTPATIENT DR HAYWARD Problem List - Problems (1) Bilateral pulmonary embolism Code(s): I26.99 - OTHER PULMONARY EMBOLISM WITHOUT ACUTE COR PULMONALE (2) Elevated LFTs Code(s): R79.89 - OTHER SPECIFIED ABNORMAL FINDINGS OF BLOOD CHEMISTRY (3) Elevated troponin Code(s): R79.89 - OTHER SPECIFIED ABNORMAL FINDINGS OF BLOOD CHEMISTRY (4) Raynaud's syndrome Code(s): I73.00 - RAYNAUD'S SYNDROME WITHOUT GANGRENE (5) SOB (shortness of breath) Code(s): R06.02 - SHORTNESS OF BREATH
--- NOTE | 2020-03-18 07:53 | PN ---
Progress Note (short form) - Note Progress Note: Pt comfortable, no dyspnea. She is anxious to be discharged, wants to start Eliquis. Hematology tests for hypercoagulability still pending. Pt understands need for workup for occult malignancy after discharge. Problem List - Problems (1) Elevated LFTs Code(s): R79.89 - OTHER SPECIFIED ABNORMAL FINDINGS OF BLOOD CHEMISTRY
[2020-03-18 08:04] LABS: HEMOGLOBIN 12.7 GM/dL (10.7-15.3); MCH 33.2 pg (25.7-33.7); MCHC 33.4 g/dl (32.0-36.0); MEAN CELL VOLUME 99.6 fl (80-96); MEAN PLT VOLUME 8.5 fl (7.5-11.1); PLATELET COUNT 228 K/MM3 (134-434); RBC 3.81 M/mm3 (3.60-5.2); RDW 12.9 % (11.6-15.6); WHITE BLOOD COUNT 6.7 K/mm3 (4.0-10.0)
[2020-03-18] MEDS: PANTOPRAZOLE 20 MG TABLET PO SCH ×2 (09:35→21:19)
--- NOTE | 2020-03-18 10:42 | PN ---
Progress Note (short form) - Note Progress Note: s: no cp sob dizzy le edema Current Medications Generic Name Dose Route Start Last Admin Trade Name Freq PRN Reason Stop Dose Admin Docusate Sodium 100 mg 03/15/20 09:31 Colace - PO Q8H PRN CONSTIPATION Heparin Sodium (Porcine) 1,000 unit 03/14/20 16:18 Heparin - IVPUSH PRN PRN Heparin Heparin Sodium (Porcine) 5,000 unit 03/14/20 16:18 03/14/20 16:50 Heparin - IVPUSH 5,000 unit PRN PRN Administration Heparin Heparin Sodium (Porcine) 25, 500 mls @ 16 mls/hr 03/14/20 16:30 03/17/20 22:03 000 unit/ Sodium Chloride IV 750 unit/hr TITR LIBBY 15 mls/hr Administration Protocol 800 UNIT/HR Pantoprazole Sodium 20 mg 03/17/20 10:00 03/18/20 09:35 Protonix - PO 20 mg BID LIBBY Administration Senna 2 tab 03/15/20 09:31 Senna - PO HS PRN CONSTIPATION Vital Signs Period Temp Pulse Resp BP Sys/Crouch Pulse Ox Last 24 Hr 97.6 F-98.4 F 81-85 20-21 144-161/71-91 94-98 Constitutional: Yes: No Distress Eyes: Yes: Conjunctiva Clear HENT: Yes: Atraumatic Neck: Yes: Trachea Midline Respiratory: Yes: Regular, CTA Bilaterally Gastrointestinal: Yes: Soft (nt) Cardiovascular: Yes: Regular Rate and Rhythm JVD: No Carotid Bruit: No PMI: Non-Displaced Heart Sounds: Yes: S1, S2 (rrr) Edema: No (Negative Mnoica's b/l) Peripheral Pulses WNL: Yes Integumentary: Yes: WNL Neurological: Yes: Alert, Oriented CBC, BMP 03/18/20 06:57 03/17/20 05:43 ST 103, LAE, poor R wave progression, NSST changes echo 03/2020: nl lv, mild rve, mild dec rv fcn, mild mr, mild tr, rvsp 40-50, lae tele: sr, brief episodes pat Imaging - Results Cat Scan: Report Reviewed (large b/l pulmonary emboli), Image Reviewed Assessment/Plan IMP: Large bilateral pulmomary emboli with evidence of right heart strain and elevated TnI Hemodynamically stable REC: 1. Pulmonary emboli: -Continue anticoagulation. -Echo showing mild RV strain -Recommend consulting Interventonal Radiology -age appropriate cancer screening -Heme evaluation -Supp O2 2 PAT: -tele showing brief atrial runs, benign -if pt has bothersome palps from this then could start toprol or dilt for symptom relief
--- NOTE | 2020-03-18 11:06 | PN ---
Physical Exam: SUBJECTIVE: Patient seen and examined. Unable to get US of Foot today. Pt . endorses feeling some palpitations today. OBJECTIVE: Vital Signs Period Temp Pulse Resp BP Sys/Crouch Pulse Ox Last 24 Hr 97.6 F-98.4 F 81-85 20-21 144-161/71-91 94-98 GENERAL: The patient is awake, alert, and fully oriented, in no acute distress. HEAD: Normal with no signs of trauma. EYES: Sclera anicteric, conjunctiva clear. No ptosis. ENT: Ears normal, nares patent, oropharynx clear without exudates, moist mucous membranes. NECK: Trachea midline, full range of motion, supple. LUNGS: Breath sounds equal, clear to auscultation bilaterally, no wheezes, no crackles, no accessory muscle use. HEART: Regular rate and rhythm, S1, S2 without murmur ABDOMEN: Soft, nontender, nondistended, normoactive bowel sounds, no guarding, no rebound, no hepatosplenomegaly, no masses. EXTREMITIES: 2+ dorsal pedal pulses, no calf tenderness, warm, well-perfused, no edema. NEUROLOGICAL: Normal speech, gait not observed. PSYCH: Normal mood, normal affect. SKIN: Warm, dry, normal turgor Laboratory Results - last 24 hr 03/18/20 03/18/20 06:57 06:57 WBC 6.7 RBC 3.81 Hgb 12.7 Hct 38.0 MCV 99.6 H MCH 33.2 MCHC 33.4 RDW 12.9 Plt Count 228 MPV 8.5 PTT (Actin FS) 55.1 H Active Medications Generic Name Dose Route Start Last Admin Trade Name Freq PRN Reason Stop Dose Admin Apixaban 10 mg 03/18/20 22:00 Eliquis - PO BID LIBBY Docusate Sodium 100 mg 03/15/20 09:31 Colace - PO Q8H PRN CONSTIPATION Heparin Sodium (Porcine) 1,000 unit 03/14/20 16:18 Heparin - IVPUSH PRN PRN Heparin Heparin Sodium (Porcine) 5,000 unit 03/14/20 16:18 03/14/20 16:50 Heparin - IVPUSH 5,000 unit PRN PRN Administration Heparin Heparin Sodium (Porcine) 25, 500 mls @ 16 mls/hr 03/14/20 16:30 03/17/20 22:03 000 unit/ Sodium Chloride IV 03/18/20 15:00 750 unit/hr TITR LIBBY 15 mls/hr Administration Protocol 800 UNIT/HR Pantoprazole Sodium 20 mg 03/17/20 10:00 03/18/20 09:35 Protonix - PO 20 mg BID LIBBY Administration Senna 2 tab 03/15/20 09:31 Senna - PO HS PRN CONSTIPATION ASSESSMENT/PLAN: Pt. is a 75 y.o. F w/ PMHx. of UTIs, Panic Attacks and Raynaud's presents with exertional dyspnea and found to have unprovoked submassive bilateral pulmonary emboli. #Submassive PE with right heart strain and elevated LFTs Switch from heparin drip to Eliquis loading dose for 7 days total. Pt. has receved 5 days of Hep. gtt therefore will give 10mg Eliquis until the and then switch to maintenance dose. Follow-up hypercoagulable labs Recommend outpatient CA screening for age Tachycardic to 150s. #Right foot pain -Differential diagnosis includes acute gout flare versus DVT/superficial venous thrombosis Repeat venous Doppler and include dorsal aspect of foot Check uric acid -Start treatment with colchicine given concurrent anticoagulation, NSAIDs with high bleeding risk. #Ventricular tachycardia Cardiology on board Continue to monitor on telemetry #FEN -No IVF -monitor electrolytes and replete as needed -Regular Diet #DVT Ppx. -Hep. Gtt to start Eliquis in AM Visit type - Emergency Visit Emergency Visit: Yes ED Registration Date: 03/14/20 Care time: The patient presented to the Emergency Department on the above date and was hospitalized for further evaluation of their emergent condition. - New Patient This patient is new to me today: Yes Date on this admission: 03/18/20 - Critical Care Critical Care patient: No - Discharge Referral Referred to [facility] No - Medication Review Med list reviewed for High Risk Meds patients 65 and older: Yes ATTENDING PHYSICIAN STATEMENT I saw and evaluated the patient. I reviewed the resident's note and discussed the case with the resident. I agree with the resident's findings and plan as documented. SUBJECTIVE: OBJECTIVE: ASSESSMENT AND PLAN:
[2020-03-18] MEDS ORDERED: IBUPROFEN 400 MG TABLET (FP) PO ONE (11:07)
--- NOTE | 2020-03-18 12:13 | PN ---
Teaching Attending Note Name of Resident: Livan Mejias ATTENDING PHYSICIAN STATEMENT I saw and evaluated the patient. I reviewed the resident's note and discussed the case with the resident. I agree with the resident's findings and plan as documented. SUBJECTIVE: seen and examined at bedside. Patient complaining of tenderness on the dorsal aspect of her right foot. There is erythema and swelling and tenderness to palpation. Noted to have ventricular tachycardia on telemetry. Patient otherwise feeling well OBJECTIVE Last Vital Signs Temp Pulse Resp BP Pulse Ox 97.9 F 81 20 154/91 98 03/18/20 06:00 03/18/20 06:00 03/18/20 06:00 03/18/20 06:00 03/17/20 21:00 PE: Per resident note Labs/Imaging: reviewed ASSESSMENT/PLAN 75-year-old female presents with exertional dyspnea and found to have submassive bilateral pulmonary emboli, unprovoked. #Submassive PE with right heart strain and elevated LFTs Switch from heparin drip to Eliquis loading dose for 7 days Follow-up hypercoagulable labs Outpatient age-appropriate cancer screening Given ventricular tachycardia on telemetry patient requires additional inpatient monitoring #Right foot pain Differential diagnosis includes acute gout flare versus DVT/superficial venous thrombosis Repeat venous Doppler and include dorsal aspect of foot Check uric acid If no thrombosis on ultrasound will start treatment with colchicine given concurrent anticoagulation, NSAIDs with high bleeding risk. #Ventricular tachycardia Cardiology on board Continue to monitor on telemetry
[2020-03-18] MEDS ORDERED: COLCHICINE 0.6 MG CAP PO ONE (12:19)
[2020-03-18] MEDS: APIXABAN 5 MG TABLET PO SCH (21:19)
--- NOTE | 2020-03-19 07:42 | PN ---
Progress Note, Physician History of Present Illness: pulmonary alert,comfortable,dyspnea improving - Current Medication List Current Medications: Active Medications Apixaban (Eliquis -) 10 mg PO BID [facility] Stop: 03/20/20 10:01 Last Admin: 03/18/20 21:19 Dose: 10 mg Documented by: Colchicine (Colcrys) 0.6 mg PO DAILY [facility] Docusate Sodium (Colace -) 100 mg PO Q8H PRN PRN Reason: CONSTIPATION Pantoprazole Sodium (Protonix -) 20 mg PO BID [facility] Last Admin: 03/18/20 21:19 Dose: 20 mg Documented by: Senna (Senna -) 2 tab PO HS PRN PRN Reason: CONSTIPATION - Objective Vital Signs: Vital Signs Temperature 97.7 F 03/19/20 05:42 Pulse Rate 70 03/19/20 05:42 Respiratory Rate 20 03/19/20 05:42 Blood Pressure 144/85 03/19/20 05:42 O2 Sat by Pulse Oximetry (%) 98 03/19/20 05:42 Constitutional: Yes: Well Nourished, Calm Eyes: Yes: WNL HENT: Yes: WNL Neck: Yes: WNL Cardiovascular: Yes: Regular Rate and Rhythm, S1, S2 Respiratory: Yes: CTA Bilaterally Gastrointestinal: Yes: Normal Bowel Sounds, Soft Extremities: Yes: WNL Edema: No Labs: CBC, BMP Problem List - Problems (1) Bilateral pulmonary embolism Code(s): I26.99 - OTHER PULMONARY EMBOLISM WITHOUT ACUTE COR PULMONALE (2) Elevated LFTs Code(s): R79.89 - OTHER SPECIFIED ABNORMAL FINDINGS OF BLOOD CHEMISTRY (3) Elevated troponin Code(s): R79.89 - OTHER SPECIFIED ABNORMAL FINDINGS OF BLOOD CHEMISTRY (4) Raynaud's syndrome Code(s): I73.00 - RAYNAUD'S SYNDROME WITHOUT GANGRENE (5) SOB (shortness of breath) Code(s): R06.02 - SHORTNESS OF BREATH Assessment/Plan IMP ACUTE SUB-MASSIVE PULMONARY EMBOLISM UNPROVOKED RAYNAUDS H/O PANIC ATTACKS PLAN SUPPLEMENTAL O2 AC ELIQUIS COVID PCR NEGATIVE AGE APPROPRIATE CANCER SCREENING W/U FOR HYPERCOAGULABLE STATE OUTPATIENT DR HAYWARD Problem List - Problems (1) Bilateral pulmonary embolism Code(s): I26.99 - OTHER PULMONARY EMBOLISM WITHOUT ACUTE COR PULMONALE (2) Elevated LFTs Code(s): R79.89 - OTHER SPECIFIED ABNORMAL FINDINGS OF BLOOD CHEMISTRY (3) Elevated troponin Code(s): R79.89 - OTHER SPECIFIED ABNORMAL FINDINGS OF BLOOD CHEMISTRY (4) Raynaud's syndrome Code(s): I73.00 - RAYNAUD'S SYNDROME WITHOUT GANGRENE (5) SOB (shortness of breath) Code(s): R06.02 - SHORTNESS OF BREATH
[2020-03-19 08:45] LABS: BLOOD UREA NITROGEN 23.3 mg/dL (7-18); CALCIUM 8.8 mg/dL (8.5-10.1); CREATININE 0.8 mg/dL (0.55-1.3); POTASSIUM 4.5 mmol/L (3.5-5.1)
[2020-03-19 09:04] LABS: HEMATOCRIT 36.1 % (32.4-45.2); HEMOGLOBIN 12.1 GM/dL (10.7-15.3); MCH 33.3 pg (25.7-33.7); MCHC 33.5 g/dl (32.0-36.0); MEAN CELL VOLUME 99.5 fl (80-96); MEAN PLT VOLUME 8.6 fl (7.5-11.1); PLATELET COUNT 229 K/MM3 (134-434); RBC 3.62 M/mm3 (3.60-5.2); RDW 12.6 % (11.6-15.6); WHITE BLOOD COUNT 6.2 K/mm3 (4.0-10.0)
[2020-03-19] MEDS ORDERED: PT OWN MED DRAWER 7, Y5N ONE (09:47)
[2020-03-19] MEDS ORDERED: COLCHICINE 0.6 MG TAB PO SCH (10:00)
[2020-03-19] MEDS: APIXABAN 5 MG TABLET PO SCH (10:38)
[2020-03-19] MEDS: PANTOPRAZOLE 20 MG TABLET PO SCH (10:39)
--- NOTE | 2020-03-19 12:10 | PN ---
Progress Note (short form) - Note Progress Note: s: no cp sob dizzy le edema Current Medications Generic Name Dose Route Start Last Admin Trade Name Freq PRN Reason Stop Dose Admin Apixaban 10 mg 03/18/20 22:00 03/19/20 10:38 Eliquis - PO 03/20/20 10:01 10 mg BID LIBBY Administration Colchicine 0.6 mg 03/19/20 10:00 03/19/20 10:39 Colcrys PO 0.6 mg DAILY LIBBY Administration Docusate Sodium 100 mg 03/15/20 09:31 Colace - PO Q8H PRN CONSTIPATION Pantoprazole Sodium 20 mg 03/17/20 10:00 03/19/20 10:39 Protonix - PO 20 mg BID LIBBY Administration Senna 2 tab 03/15/20 09:31 Senna - PO HS PRN CONSTIPATION Vital Signs Period Temp Pulse Resp BP Sys/Crouch Pulse Ox Last 24 Hr 97.6 F-97.9 F 70-77 20-20 118-153/68-89 98-99 Constitutional: Yes: No Distress Eyes: Yes: Conjunctiva Clear HENT: Yes: Atraumatic Neck: Yes: Trachea Midline Respiratory: Yes: Regular, CTA Bilaterally Gastrointestinal: Yes: Soft (nt) Cardiovascular: Yes: Regular Rate and Rhythm JVD: No Carotid Bruit: No PMI: Non-Displaced Heart Sounds: Yes: S1, S2 (rrr) Edema: No (Negative Monica's b/l) Peripheral Pulses WNL: Yes Neurological: Yes: Alert, Oriented no jaundice, diaphoresis not agitated ST 103, LAE, poor R wave progression, NSST changes echo 03/2020: nl lv, mild rve, mild dec rv fcn, mild mr, mild tr, rvsp 40-50, lae tele: sr, brief episodes pat Imaging - Results Cat Scan: Report Reviewed (large b/l pulmonary emboli), Image Reviewed Assessment/Plan IMP: Large bilateral pulmomary emboli with evidence of right heart strain and elevated TnI Hemodynamically stable REC: 1. Pulmonary emboli: -Continue anticoagulation -Echo showed mild RV strain - remains hemodynamically stable -age appropriate cancer screening -Heme evaluation -Supp O2 2 PAT: -tele showing brief atrial runs, benign - per patient has had for many years -if pt has bothersome palps from this then could start toprol or dilt for symptom relief, defer for now
--- NOTE | 2020-03-19 13:20 | PN ---
Teaching Attending Note Name of Resident: Livan Mejias ATTENDING PHYSICIAN STATEMENT I saw and evaluated the patient. I reviewed the resident's note and discussed the case with the resident. I agree with the resident's findings and plan as documented. SUBJECTIVE: seen and examined at bedside. Patient reports foot pain improved. Case discu ssed with cardiology. Patient has had similar arrhythmias for years and likely do not represent acute hemodynamic instability in the setting of pulmonary embolus. Patient is satting on room air and is medically cleared for discharge. OBJECTIVE Last Vital Signs Temp Pulse Resp BP Pulse Ox 97.9 F 81 20 154/91 98 03/18/20 06:00 03/18/20 06:00 03/18/20 06:00 03/18/20 06:00 03/17/20 21:00 PE: Per resident note Labs/Imaging: reviewed ASSESSMENT/PLAN 75-year-old female presents with exertional dyspnea and found to have submassive bilateral pulmonary emboli, unprovoked.Patient was started on a heparin drip and transferred to [facility]. Hypercoagulable labs and age-appropriate cancer screenings will need to be completed as an outpatient. Patient is aware. Patient also with right foot plain during admission suspicious for acute gout flare. Patient was started on colchicine with improvement in symptoms. Patient should continue colchicine for 1 week treatment and should have uric acid drawn as an outpatient to evaluate for need for uric acid lowering therapy. Medically cleared for discharge.
[2020-03-19 15:01] VITALS: BP 149/85; PULSE 77; TEMP 98.1
--- NOTE | 2020-03-19 16:39 | DS ---
Physical Exam: SUBJECTIVE: Patient seen and examined. Pt. denies any acute complaints and denies feeling any palpitations overnight. Pt. states that her foot pain is much improved. OBJECTIVE: Vital Signs Period Temp Pulse Resp BP Sys/Crouch Pulse Ox Last 24 Hr 97.7 F-98.1 F 70-77 20-20 118-153/73-89 98-99 PHYSICAL EXAM GENERAL: The patient is awake, alert, and fully oriented, in no acute distress. HEAD: Normal with no signs of trauma. EYES: Sclera anicteric, conjunctiva clear. No ptosis. ENT: Ears normal, nares patent, oropharynx clear without exudates, moist mucous membranes. NECK: Trachea midline, full range of motion, supple. LUNGS: Breath sounds equal, clear to auscultation bilaterally, no wheezes, no crackles, no accessory muscle use. HEART: Regular rate and rhythm, S1, S2 without murmur ABDOMEN: Soft, nontender, nondistended, normoactive bowel sounds, no guarding, no rebound, no hepatosplenomegaly, no masses. EXTREMITIES: 2+ dorsal pedal pulses, no calf tenderness, warm, well-perfused, no edema. NEUROLOGICAL: Normal speech, gait not observed. PSYCH: Normal mood, normal affect. SKIN: Warm, dry, normal turgor LABS Laboratory Results - last 24 hr 03/19/20 03/19/20 03/19/20 06:50 06:50 06:50 WBC 6.2 RBC 3.62 Hgb 12.1 Hct 36.1 MCV 99.5 H MCH 33.3 MCHC 33.5 RDW 12.6 Plt Count 229 MPV 8.6 PTT (Actin FS) 30.6 Sodium 140 Potassium 4.5 Chloride 110 H Carbon Dioxide 22 Anion Gap 8 BUN 23.3 H Creatinine 0.8 Est GFR (CKD-EPI)AfAm 82.42 Est GFR (CKD-EPI)NonAf 71.11 Random Glucose 79 Calcium 8.8 HOSPITAL COURSE: Date of Admission:03/14/20 Date of Discharge: 03/19/20 Pt is a 75 y.o. F w/ PMHx. of Raynauds Syndrome, former smoker (30 pack years, quit 32 years ago), panic attacks, UTIs, thrombosed vein in chest (40 years ago) presented to the ED with SOB and associated chest tightness. CTA showed B/L PE within the left primary and right pulmonary arteries with associated right heart strain. Pt was admitted for B/L unprovoked PE. Pt was started on heparin gtt in the ED and then switched to Eliquis loading dose for 7 days total after receiving heparin drip for 5 days. Pt. noted to have elevated LFTs likely a result of PE and sequelae of right heart strain. Hypercoaguable workup initiated inpatient to be followed up as outpatient as well as age-appropriate CA screenings. Pt was started on colchicine for acute gout flare. Pt. seen by Pulmonology, Gastroenterology, Cardiology and Hematology. Decision was made against thrombectomy or thrombolysis by IR. Pt. had Medicine adjustment and hospital follow-up is noted below. Pt is medically stabilized and discharged home to follow up with PCP for further evaluation. Minutes to complete discharge: 25 Discharge Summary Problems reviewed: Yes Reason For Visit: ELEVATED LIVER FUNCTION TESTS/ELEVATED TROPONIN LE Current Active Problems Bilateral pulmonary embolism (Acute) Elevated LFTs (Acute) Elevated troponin (Acute) Encounter for screening laboratory testing for COVID-19 virus (Acute) Prophylactic measure (Acute) Raynaud's syndrome (Acute) SOB (shortness of breath) (Acute) Condition: Stable - Instructions Diet, Activity, Other Instructions: You came in for shortness of breath. We imaged your chest and saw that you had a large clot in the arteries leading to your lung. We started you on medication to break the clot up and to prevent another clot from forming. You were evaluated by a jockey agent, auto parts salesperson, interventional radiologist, speech and language tutor and an adobe cq developer. We imaged your heart and saw that you were having some st rain from the clot on your heart. Because of the length of time that you had the clot it was decided not to to an invasive procedure to remove the clot physically. We imaged your legs and did not find evidence of a clot there. While you were here your developed pain in your foot that was because of an gout flare. We started you on medication to treat your gout. You were noted to have elevated liver enzymes which became normal after treating your clot. We monitored you on telemetry and noted that your hear rate was fast. You stated that this has been going on for 10 years and has been evaluated by your home jockey agent with "angiogram and holter monitor" and it was deemed a benign occurrence. We sent blood tests to find a reason why you developed a clot. The results have not come back yet. This is an unprovoked Pulmonary Embolism. Please take Eliquis 10mg EVERY 12 Hours (10 am and 10 pm) for 12 more doses starting TONIGHT. Please start taking Eliquis 5mg EVERY 12 hours starting the evening of 03/25 Eliquis is a blood thinner and puts your at increased risk of bleeding. Please avoid bumps and falls. Please check your gums, urine and stool everyday for bl ood. Black stool is also a sign of bleeding. Please avoid taking NSAIDs as much as possible as the combined effects of Eliquis and the NSAID will raise your bleeding risk even further. Of note We are giving your 5mg pills, therefore on the days that you are taking 10mg, you should take TWO 5mg pills in the morning and again in the evening. Please continue taking Colchicine 0.6 mg ONCE a day for 5 more days Please continue your home medications as prescribed. Please follow up with your PCP within 1 week. Please bring this paper with you. Please have them follow up with your the results of the blood tests we sent. Please conitnue your age appropriate screening for possible cancers, as this may be the cause of your Pulmonary Embolism. Please also repeat a Uric Acid level at this time to determine if you need to be started on a medication to control your uric acid levels. Please return to the ED if you are having worsening shortness of breath, chest pain, signs of bleeding, severe headache, changes in vision or any other concerning symptoms. Referrals: Brunilda Mcneil MD [Primary Care Provider] - Disposition: HOME - Home Medications Comprehensive Discharge Medication List: Ambulatory Orders Apixaban [Eliquis -] 10 mg PO BID #54 tablet 03/19/20 Colchicine [Colcrys] 0.6 mg PO DAILY #5 tab 03/19/20 This patient is new to me today: No Emergency Visit: Yes ED Registration Date: 03/14/20 Care time: The patient presented to the Emergency Department on the above date and was hospitalized for further evaluation of their emergent condition. Critical Care patient: No - Discharge Referral Referred to [facility] No ATTENDING PHYSICIAN STATEMENT I saw and evaluated the patient. I reviewed the resident's note and discussed the case with the resident. I agree with the resident's findings and plan as documented. SUBJECTIVE: OBJECTIVE: ASSESSMENT AND PLAN:
[2020-03-20 16:08] LABS: PROTEIN S, FREE 117 % (57-157)
[2020-03-29 16:08] LABS: DRVVT - 44.1 sec (0.0-47.0)
== END 2020-03-19 18:20 | disposition home or self-care (01) | DRG 176 ==
LOC: FER 14:19 → FM/S 16:38 → J4W 03-15 09:24
PROVIDERS: ADMIT Internal Medicine; ATTEND Internal Medicine
DX: I26.99 Other pulmonary embolism without acute cor pulmonale (principal); I47.2 Ventricular tachycardia; I73.00 Raynaud's syndrome without gangrene; Z87.891 Personal history of nicotine dependence; Z87.440 Personal history of urinary (tract) infections; F41.0 Panic disorder [episodic paroxysmal anxiety]; R79.89 Other specified abnormal findings of blood chemistry; R74.0 Nonspecific elevation of levels of transaminase and lactic acid dehydrogenase [LDH]; D75.89 Other specified diseases of blood and blood-forming organs; M79.671 Pain in right foot; Z20.828 Contact with and (suspected) exposure to other viral communicable diseases
CPT/HCPCS: 36415; 71045-TC-FY; 71260-TC; 73630-TC-RT-FY; 76705-TC; 80048; 80053; 80074; 81003; 81015; 81240; 81241; 82550; 82607; 82746; 83615; 83735; 83880; 84100; 84443; 84484; 84550; 85025; 85027; 85045; 85300; 85303; 85305; 85306; 85610; 85613; 85730; 85732; 86704; 86706; 86707; 86708; 86709; 86850; 86900; 86901; 87086; 87340; 87522; 93005; 93306-TC; 93970-TC; 99291; J1644; U0003

== ENCOUNTER 2021-10-25 08:48 | Emergency (ER) | payer OTHER ==
[2021-10-25 08:53] VITALS: BP 110/56; PULSE 78; TEMP 98; BMI 25.7
[2021-10-25] MEDS ORDERED: ACETAMINOPHEN 500 MG TABLET (FP) PO ONE (09:01)
[2021-10-25] MEDS ORDERED: ACETAMINOPHEN 325 MG TABLET (FP) ONE (09:11)
== END 2021-10-25 10:24 | disposition home or self-care (01) ==
LOC: FER 08:48
DX: M25.562 Pain in left knee (principal)
CPT/HCPCS: 70450-TC; 73562-TC-LT-FY; 99284-25

== ENCOUNTER 2022-03-30 08:43 | Emergency (ER) | payer OTHER ==
[2022-03-30 08:56] VITALS: BP 107/78; PULSE 85; RESP 16; TEMP 98; BMI 25.7
[2022-03-30] MEDS ORDERED: DIPHTH,PERTUSS(ACELL),TET 0.5 ML DISP.SYRIN IM ONE ×2 (09:55→09:59)
[2022-03-30] MEDS ORDERED: ACETAMINOPHEN 325 MG TABLET (FP) PO ONE (09:55)
[2022-03-30] MEDS ORDERED: ACETAMINOPHEN 325 MG TABLET (FP) ONE (09:58)
== END 2022-03-30 11:09 | disposition home or self-care (01) ==
LOC: JERFT 08:43
PROC: 3E0234Z Introduction of Serum, Toxoid and Vaccine into Muscle, Percutaneous Approach (ICD-10-PCS; principal; 2022-03-30)
DX: S99.912A Unspecified injury of left ankle, initial encounter (principal); W10.9XXA Fall (on) (from) unspecified stairs and steps, initial encounter
CPT/HCPCS: 73610-TC-LT-FY; 73630-TC-LT; 90471; 90715; 99284-25